=== PATIENT | female | born 1965 | race Caucasian/White ===

== ENCOUNTER 2017-12-27 15:55 | Emergency (ER) | payer MEDICAID ==
[~2017-12-27] VITALS: Ht 157.5 cm; Wt 48.4 kg
[~2017-12-27 15:55] MED LIST: COROTSUS EACH EAR; CYCL-1 PO; HYDR-569 PO; IBUP-1985 PO; NAPR500T6 PO; NO HOME MEDS
[2017-12-27] MEDS ORDERED: dexamethasone sod phosphate 10mg/ml inj IM STA (18:22)
[2017-12-27] MEDS ORDERED: IBUP-1986 PO (18:25)
[2017-12-27] MEDS ORDERED: PRED50TA PO (18:25)
[2017-12-27] MEDS ORDERED: PRAM177L19 TOP (18:25)
[2017-12-27] MEDS ORDERED: ketorolac tromethamine 15mg/ml inj. IM ONE (18:25)
[2017-12-27 18:46] VITALS: BP 138/67
== END 2017-12-27 18:47 | disposition home or self-care (01) ==
LOC: ER 15:56
DX: L23.9 Allergic contact dermatitis, unspecified cause (principal); J44.9 Chronic obstructive pulmonary disease, unspecified; G89.29 Other chronic pain; F12.10 Cannabis abuse, uncomplicated; F17.200 Nicotine dependence, unspecified, uncomplicated; Z88.0 Allergy status to penicillin; Z79.899 Other long term (current) drug therapy
CPT/HCPCS: 96372; 99284; J1100; J1885

== ENCOUNTER 2018-01-11 13:52 | Emergency (ER) | payer MEDICAID ==
[~2018-01-11] VITALS: Ht 157.5 cm; Wt 48.6 kg
[~2018-01-11 13:52] MED LIST changes: +IBUP-1986 PO; +PRAM177L19 TOP; +PRED50TA PO
[2018-01-11 14:34] VITALS: BP 100/68
[2018-01-11] MEDS ORDERED: ipratropium/albuterol 3ml nebule NEB ONE (15:15)
[2018-01-11] MEDS ORDERED: ketorolac tromethamine 15mg/ml inj. IM ONE (15:55)
[2018-01-11] MEDS ORDERED: benzonatate 100mg capsule PO ONE (15:55)
[2018-01-11] MEDS ORDERED: ALBU18HF2 INH (16:02)
[2018-01-11] MEDS ORDERED: AZIT-55 PO (16:02)
[2018-01-11] MEDS ORDERED: BENZ-16 PO (16:02)
[2018-01-11] MEDS ORDERED: GUAI1TBM19 PO (16:02)
== END 2018-01-11 16:52 | disposition home or self-care (01) ==
LOC: ER 13:53
DX: J18.9 Pneumonia, unspecified organism (principal); F17.200 Nicotine dependence, unspecified, uncomplicated; F12.10 Cannabis abuse, uncomplicated; J44.9 Chronic obstructive pulmonary disease, unspecified; G89.29 Other chronic pain; Z88.0 Allergy status to penicillin; Z79.899 Other long term (current) drug therapy
CPT/HCPCS: 36415; 71046; 84484; 93005; 94640; 94760; 96372; 99285; J1885

== ENCOUNTER 2018-01-31 16:26 | Emergency (ER) | payer MEDICAID ==
[~2018-01-31] VITALS: Ht 157.5 cm; Wt 49.1 kg
[~2018-01-31 16:26] MED LIST changes: +ALBU18HF2 INH; +AZIT-55 PO; +BENZ-16 PO; +GUAI1TBM19 PO
[2018-01-31] MEDS ORDERED: gabapentin 300mg capsule PO ONE (16:45)
[2018-01-31] MEDS ORDERED: ketorolac trometh inj. 60 MG/2 ML VIAL IM ONE (16:45)
[2018-01-31] MEDS ORDERED: dexamethasone sod phosphate 10mg/ml inj IM STA (16:56)
[2018-01-31 17:25] VITALS: BP 128/72
[2018-02-01] MEDS ORDERED: GABA-530 PO (15:52)
== END 2018-01-31 17:26 | disposition home or self-care (01) ==
LOC: ER 16:26
DX: G43.909 Migraine, unspecified, not intractable, without status migrainosus (principal); M54.2 Cervicalgia; G89.29 Other chronic pain; J44.9 Chronic obstructive pulmonary disease, unspecified; F12.10 Cannabis abuse, uncomplicated; Z88.0 Allergy status to penicillin; Z79.899 Other long term (current) drug therapy
CPT/HCPCS: 96372; 99284; J1100; J1885

== ENCOUNTER 2018-07-04 01:14 | Emergency (ER) | payer MEDICAID ==
[~2018-07-04] VITALS: Ht 157.5 cm; Wt 46.2 kg
[~2018-07-04 01:14] MED LIST changes: -AZIT-55 PO; -BENZ-16 PO; +GABA-530 PO; +HYDR-4383 PO; -HYDR-569 PO
[2018-07-04] MEDS ORDERED: ketorolac trometh inj. 60 MG/2 ML VIAL IM ONE (01:50)
[2018-07-04] MEDS ORDERED: HYDROcodone/acetaminophen 5mg/325mg tablet PO ONE (01:50)
[2018-07-04] MEDS ORDERED: CYCL-1 PO (02:27)
[2018-07-04] MEDS ORDERED: HYDR-3965 PO (02:27)
[2018-07-04 02:47] VITALS: BP 99/64
== END 2018-07-04 02:50 | disposition home or self-care (01) ==
LOC: ER 01:14
DX: M25.551 Pain in right hip (principal); K62.3 Rectal prolapse; J44.9 Chronic obstructive pulmonary disease, unspecified; G89.29 Other chronic pain; F12.90 Cannabis use, unspecified, uncomplicated; Z88.0 Allergy status to penicillin; Z79.899 Other long term (current) drug therapy; Y04.0XXA Assault by unarmed brawl or fight, initial encounter; Y93.89 Activity, other specified; Y92.89 Other specified places as the place of occurrence of the external cause; Y99.9 Unspecified external cause status
CPT/HCPCS: 96372; 99284; J1885

== ENCOUNTER 2018-10-14 17:35 | Emergency (ER) | payer MEDICAID ==
[~2018-10-14] VITALS: Ht 157.5 cm; Wt 49.1 kg
--- NOTE | 2018-10-14 20:26 | NUR ---
Patient became frustrated and left prior to being seen.
== END 2018-10-14 20:27 | disposition left against medical advice (07) ==
LOC: ER 17:35
DX: R05 Cough (principal); Z53.21 Procedure and treatment not carried out due to patient leaving prior to being seen by health care provider
CPT/HCPCS: 71045

== ENCOUNTER 2018-11-03 15:42 | Emergency (ER) | payer MEDICAID ==
[~2018-11-03] VITALS: Ht 157.5 cm; Wt 100.0 kg
[2018-11-03] MEDS ORDERED: ipratropium/albuterol 3ml nebule NEB ONE (17:40)
[2018-11-03] MEDS ORDERED: predniSONE 20 mg tablet PO ONE (17:40)
[2018-11-03] MEDS ORDERED: ALBU6.7H INH (17:58)
[2018-11-03] MEDS ORDERED: LEVO500T89 PO (17:58)
[2018-11-03] MEDS ORDERED: PRED20TA PO (17:58)
[2018-11-03] MEDS ORDERED: GUAI120015 PO (17:58)
[2018-11-03] MEDS ORDERED: CefTRIAXone 1000mg IM Kit (w/lidocaine diluent) IM ONE (18:00)
[2018-11-03] MEDS ORDERED: ketorolac trometh inj. 60 MG/2 ML VIAL IM ONE (18:30)
[2018-11-03 18:52] VITALS: BP 103/47
== END 2018-11-03 18:54 | disposition home or self-care (01) ==
LOC: ER 15:43
DX: J18.1 Lobar pneumonia, unspecified organism (principal); J44.1 Chronic obstructive pulmonary disease with (acute) exacerbation; G89.29 Other chronic pain; F15.10 Other stimulant abuse, uncomplicated; F12.90 Cannabis use, unspecified, uncomplicated; Z88.0 Allergy status to penicillin; Z79.899 Other long term (current) drug therapy; Z79.2 Long term (current) use of antibiotics
CPT/HCPCS: 71046; 93005; 94640; 94760; 96372; 99284; J0696; J1885; J7512

== ENCOUNTER 2018-11-05 19:18 | Emergency (ER) | payer MEDICAID ==
[~2018-11-05 19:18] MED LIST changes: +ALBU6.7H INH; +GUAI120015 PO; +LEVO500T89 PO; +PRED20TA PO
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
== END 2018-11-05 19:26 | disposition left against medical advice (07) ==
LOC: ER 19:18
DX: F41.0 Panic disorder [episodic paroxysmal anxiety] (principal); Z53.21 Procedure and treatment not carried out due to patient leaving prior to being seen by health care provider

== ENCOUNTER 2018-11-05 19:32 | Emergency (ER) | payer MEDICAID ==
[~2018-11-05] VITALS: Ht 157.5 cm; Wt 49.0 kg
--- NOTE | 2018-11-05 21:21 | NUR ---
Pt up to d/c and she said she cannot be d/c she is not wanting to leave the premises. Securtiy contact.
[2018-11-05 21:22] VITALS: BP 146/81
== END 2018-11-05 21:23 | disposition home or self-care (01) ==
LOC: ER 19:32
DX: F41.9 Anxiety disorder, unspecified (principal); F32.9 Major depressive disorder, single episode, unspecified; F12.90 Cannabis use, unspecified, uncomplicated; F15.90 Other stimulant use, unspecified, uncomplicated; J44.9 Chronic obstructive pulmonary disease, unspecified; G89.29 Other chronic pain; F17.200 Nicotine dependence, unspecified, uncomplicated; Z76.5 Malingerer [conscious simulation]; Z88.0 Allergy status to penicillin; Z79.899 Other long term (current) drug therapy
CPT/HCPCS: 99284

== ENCOUNTER 2019-06-07 19:16 | Emergency (ER) | payer MEDICAID ==
[~2019-06-07] VITALS: Ht 157.5 cm; Wt 54.0 kg
[~2019-06-07 19:16] MED LIST changes: -ALBU6.7H INH; +ALBU6.7H9 INH; -LEVO500T89 PO; -PRED20TA PO
[2019-06-07 19:22] VITALS: BP 107/71
--- NOTE | 2019-06-07 20:18 | NUR ---
Sharmila bianchi in EDM - 06/07/19 at 2034 by CHRISTIANO Pt ran out the side door of [facility] yelling "I cant find my dog, I cant find my dog". Unable to persuade pt not to leave. informed.
--- NOTE | 2019-06-07 20:23 | NUR ---
Pt making random statements. Pt unable to verbalize complete thoughts.
--- NOTE | 2019-06-07 20:30 | NUR ---
Pt ran out the side door of [facility] yelling "I cant find my dog, I cant find my dog". Unable to persuade pt not to leave. informed.
== END 2019-06-07 20:36 | disposition left against medical advice (07) ==
LOC: ER 19:17
DX: S61.401A Unspecified open wound of right hand, initial encounter (principal); J44.9 Chronic obstructive pulmonary disease, unspecified; G89.29 Other chronic pain; M54.9 Dorsalgia, unspecified; F41.9 Anxiety disorder, unspecified; F32.9 Major depressive disorder, single episode, unspecified; F12.90 Cannabis use, unspecified, uncomplicated; F15.90 Other stimulant use, unspecified, uncomplicated; Z79.899 Other long term (current) drug therapy; Z87.891 Personal history of nicotine dependence; X58.XXXA Exposure to other specified factors, initial encounter; Y93.89 Activity, other specified; Y92.89 Other specified places as the place of occurrence of the external cause; Y99.8 Other external cause status
CPT/HCPCS: 99284

== ENCOUNTER 2019-06-29 19:12 | Emergency (ER) | payer MEDICAID ==
[~2019-06-29] VITALS: Ht 154.9 cm; Wt 49.0 kg
[2019-06-29 19:13] VITALS: BP 121/79
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
[2019-06-29] MEDS ORDERED: IBUP-1984 PO (20:46)
== END 2019-06-29 21:26 | disposition home or self-care (01) ==
LOC: ER 19:13
DX: R07.81 Pleurodynia (principal); R07.89 Other chest pain; J44.9 Chronic obstructive pulmonary disease, unspecified; F41.9 Anxiety disorder, unspecified; F32.9 Major depressive disorder, single episode, unspecified; G89.29 Other chronic pain; F12.90 Cannabis use, unspecified, uncomplicated; F15.90 Other stimulant use, unspecified, uncomplicated; Z88.0 Allergy status to penicillin; Z79.899 Other long term (current) drug therapy; Z79.1 Long term (current) use of non-steroidal anti-inflammatories (NSAID)
CPT/HCPCS: 71111; 99283

== ENCOUNTER 2019-07-17 09:46 | Inpatient (IN) | payer MEDICAID ==
[~2019-07-17] VITALS: Ht 157.5 cm; Wt 48.0 kg
[~2019-07-17 09:46] MED LIST changes: +IBUP-1984 PO
[2019-07-17] MEDS ORDERED: acetaminophen 325mg tablet PO ONE ×2 (10:20→10:55)
--- NOTE | 2019-07-17 10:24 | NUR ---
temperature: 99.9. does not fall under ed protocol.
[2019-07-17 10:25] LABS: BASOPHILS # (AUTO) 0.1 X10'3 (0-0.2); BASOPHILS % (AUTO) 0.4 % (0-1); EOSINOPHILS % (AUTO) 0 % (0-6); HEMATOCRIT 44.8 % (35.0-45.0); HEMOGLOBIN 15.2 g/dl (12.0-16.0); LYMPHOCYTES # (AUTO) 1.3 X10'3 (1.1-4.8); LYMPHOCYTES % (AUTO) 6.9 % (21-51); MEAN CORPUSCULAR HEMOGLOBIN 31.5 PG (27.0-31.0); MEAN CORPUSCULAR HGB CONC 33.9 g/dL (33.0-36.5); MEAN CORPUSCULAR VOLUME 92.9 FL (78-98); MEAN PLATELET VOLUME 7.7 FL (7.4-10.4); MONOCYTES # (AUTO) 1.2 X10'3 (0-0.9); MONOCYTES % (AUTO) 5.9 % (2-12); NEUTROPHILS % (AUTO) 86.8 % (42-75); PLATELET COUNT 292 X10'3 (140-440); RED BLOOD COUNT 4.82 X10'6 (4.20-5.60); WHITE BLOOD COUNT 19.6 X10'3 (4.5-11.0)
[2019-07-17 10:40] LABS: PARTIAL THROMBOPLASTIN TIME 31 SECONDS (22-32)
[2019-07-17 10:43] LABS: ALANINE AMINOTRANSFERASE 21 U/L (12-78); ALBUMIN 3.3 G/DL (3.4-5.0); ALBUMIN/GLOBULIN RATIO 0.7 (1.1-1.5); ALKALINE PHOSPHATASE 102 IU/L (46-116); ANION GAP 12 (8-16); ASPARTATE AMINO TRANSFERASE 23 U/L (10-37); BILIRUBIN,TOTAL 0.7 MG/DL (0.1-1.0); BLOOD UREA NITROGEN 9 MG/DL (7-18); BUN/CREATININE RATIO 13.2 (6.6-38.0); CALCIUM 8.8 MG/DL (8.5-10.1); CHLORIDE 95 MMOL/L (99-107); CREATININE 0.68 MG/DL (0.40-0.90); GLUCOSE 135 MG/DL (70-104); POTASSIUM 3.2 MMOL/L (3.5-5.1); SODIUM 130 MMOL/L (135-145); TOTAL CARBON DIOXIDE 22.7 MMOL/L (24-32); TOTAL PROTEIN 8.3 G/DL (6.4-8.2); eGFR 90 ML/MIN
[2019-07-17] MEDS ORDERED: normal saline 1000ml 1,000 ML IV ONE (10:55)
[2019-07-17] MEDS ORDERED: CefTRIAXone/D5W-Rocephin 1gm 50 ML IV ONE (10:55)
[2019-07-17] MEDS ORDERED: normal saline 1000ML IV soln IVB ONE (10:55)
[2019-07-17] MEDS ORDERED: potassium Cl 20 mEq SR tablet PO ONE (11:10)
[2019-07-17 11:47] LABS: CLARITY,URINE CLEAR (Clear); COLOR,URINE YELLOW (Yellow); GLUCOSE, URINE NEGATIVE (Neg); KETONES,URINE NEGATIVE (Neg); LEUKOCYTE ESTERASE ,URINE NEGATIVE (Neg); NITRITES, URINE NEGATIVE (Neg); OCCULT BLOOD,URINE MODERATE (Neg); PROTEIN,URINE 30 mg/dl (Neg); UROBILINOGEN,URINE 0.2 E.U/dL (0.2-1.0)
[2019-07-17 11:48] LABS: UA COLLECTION TYPE CLN CATCH MIDSTREAM
[2019-07-17 11:55] LABS: BACTERIA,URINE FEW /HPF (Neg); COARSE GRANULAR CAST 0-3 /LPF (NEGATIVE); MUCUS STRANDS MANY /LPF (Neg); SQUAMOUS EPITHELIAL CELL,UR FEW /LPF (FEW); TRANSITIONAL EPI CELLS,URINE FEW /HPF; WBC,URINE 0-4 /HPF (0-4)
[2019-07-17] MEDS: normal saline 1000ml 1,000 ML IV SCH ×2 (12:03→23:59)
[2019-07-17] MEDS ORDERED: mag hydrox/Alum hydrox/simeth 30ml oral suspension PO PRN (12:05)
[2019-07-17] MEDS ORDERED: magnesium hydroxide 30ml (MOM) UD suspension PO PRN (12:05)
[2019-07-17] MEDS ORDERED: ipratropium/albuterol 3ml nebule NEB PRN (12:05)
[2019-07-17] MEDS ORDERED: azithromycin 250mg tablet PO ONE (12:05)
[2019-07-17] MEDS ORDERED: ondansetron/PF 4mg/2ml inj IV PRN (12:05)
[2019-07-17] MEDS ORDERED: acetaminophen 325mg tablet PO PRN (12:05)
[2019-07-17] MEDS ORDERED: NO HOME MEDS (12:54)
--- NOTE | 2019-07-17 13:00 | NUR ---
Patient in room ED 14. I have received report from Dali MITCHELL and had the opportunity to ask questions and assume patient care.
[2019-07-17] MEDS ORDERED: iohexol 300mg/ml 100ml inj. ONE (13:13)
[2019-07-17 13:35] VITALS: BP 128/83
--- NOTE | 2019-07-17 14:01 | NUR ---
Pt disconnected from IVF for transport to CT by CT staff. Pt off unit at this time. Addendum: 07/17/19 at 1427 by Itzel Limon RN 1420 Pt returned to unit in stable condition. Standing at bedside, going through her belongings. Cell phone removed from her bag and with her in her bed. internal sales applied. IVF restarted.
--- NOTE | 2019-07-17 14:14 | NUR ---
Entered pt's 1335 VS per primary RN request.
[2019-07-17] MEDS: ipratropium/albuterol 3ml nebule NEB SCH ×3 (14:37→23:29)
[2019-07-17 15:00] VITALS: BP 129/72
[2019-07-17] MEDS: HYDROcodone/acetaminophen 5mg/325mg tablet PO PRN ×2 (16:19→22:26)
[2019-07-17] MEDS: acetaminophen 325mg tablet PO PRN ×2 (16:20→22:26)
[2019-07-17] MEDS ORDERED: dextrose 50%-water 50ml dispensing syringe IV PRN (17:30)
[2019-07-17] MEDS ORDERED: thiamine 100mg/ml 2ml inj. IV ONE (17:30)
[2019-07-17] MEDS: folic acid 1mg tablet PO SCH (17:42)
[2019-07-17] MEDS: thiamine 100mg tablet PO SCH (17:42)
[2019-07-17] MEDS: multivitamins, therapeutics tablet PO SCH (17:42)
[2019-07-17 18:00] VITALS: BP 107/69
--- NOTE | 2019-07-17 18:51 | NUR ---
Patient in room PCU 3009. I have received report from Jocelyn MITCHELL and had the opportunity to ask questions and assume patient care.
--- NOTE | 2019-07-17 19:14 | NUR ---
Problems reprioritized. Patient report given, questions answered & plan of care reviewed with Christian RN.
[2019-07-17] MEDS: heparin, porcine 5000 units/ml vial SQ SCH (20:00)
[2019-07-17 22:00] VITALS: BP 134/105
[2019-07-17] MEDS: LORazepam 2 mg/ml vial IV PRN (22:37)
[2019-07-18 02:00] VITALS: BP 126/74
[2019-07-18] MEDS: ipratropium/albuterol 3ml nebule NEB SCH ×6 (03:13→23:18)
[2019-07-18] MEDS: LORazepam 2 mg/ml vial IV PRN ×4 (04:48→21:20)
[2019-07-18] MEDS: HYDROcodone/acetaminophen 5mg/325mg tablet PO PRN ×3 (04:48→19:54)
[2019-07-18 05:27] LABS: BASOPHILS # (AUTO) 0.1 X10'3 (0-0.2); BASOPHILS % (AUTO) 0.4 % (0-1); EOSINOPHILS % (AUTO) 0 % (0-6); HEMATOCRIT 40.5 % (35.0-45.0); HEMOGLOBIN 13.5 g/dl (12.0-16.0); LYMPHOCYTES # (AUTO) 1.4 X10'3 (1.1-4.8); LYMPHOCYTES % (AUTO) 8.3 % (21-51); MEAN CORPUSCULAR HEMOGLOBIN 31.8 PG (27.0-31.0); MEAN CORPUSCULAR HGB CONC 33.3 g/dL (33.0-36.5); MEAN CORPUSCULAR VOLUME 95.7 FL (78-98); MEAN PLATELET VOLUME 8.1 FL (7.4-10.4); MONOCYTES % (AUTO) 5.8 % (2-12); NEUTROPHILS # (AUTO) 14.3 X10'3 (1.8-7.7); NEUTROPHILS % (AUTO) 85.5 % (42-75); PLATELET COUNT 221 X10'3 (140-440); RED BLOOD COUNT 4.23 X10'6 (4.20-5.60); RED CELL DISTRIBUTION WIDTH 14.2 % (11.5-14.5); WHITE BLOOD COUNT 16.7 X10'3 (4.5-11.0)
[2019-07-18 05:29] LABS: ALBUMIN 2.7 G/DL (3.4-5.0); ANION GAP 6 (8-16); BLOOD UREA NITROGEN 10 MG/DL (7-18); BUN/CREATININE RATIO 15.4 (6.6-38.0); CALCIUM 8.7 MG/DL (8.5-10.1); CHLORIDE 101 MMOL/L (99-107); CREATININE 0.65 MG/DL (0.40-0.90); GLUCOSE 109 MG/DL (70-104); POTASSIUM 4.4 MMOL/L (3.5-5.1); SODIUM 133 MMOL/L (135-145); TOTAL CARBON DIOXIDE 26.1 MMOL/L (24-32); eGFR > 90 ML/MIN
--- NOTE | 2019-07-18 06:15 | NUR ---
Problems reprioritized. Patient report given, questions answered & plan of care reviewed with kat sterling .
[2019-07-18 06:30] VITALS: BP 125/84
--- NOTE | 2019-07-18 06:33 | NUR ---
Patient in room PCU 3009. I have received report from Christian MITCHELL and had the opportunity to ask questions and assume patient care.
[2019-07-18] MEDS: azithromycin 250mg tablet PO SCH (07:41)
[2019-07-18] MEDS: folic acid 1mg tablet PO SCH (07:41)
[2019-07-18] MEDS: multivitamins, therapeutics tablet PO SCH (07:41)
[2019-07-18] MEDS: thiamine 100mg tablet PO SCH (07:41)
[2019-07-18] MEDS: CefTRIAXone 2gm/D5W 50ml 50 ML IV SCH (07:41)
[2019-07-18] MEDS: heparin, porcine 5000 units/ml vial SQ SCH ×2 (07:42→19:40)
[2019-07-18] MEDS: normal saline 1000ml 1,000 ML IV SCH ×2 (07:42→18:03)
[2019-07-18] MEDS ORDERED: folic acid inj. 2 MG, thiamine inj. 100 MG, MVI, adult No.4 with vit. K 10 ML in dextro... IV SCH ×4 (08:00)
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
--- NOTE | 2019-07-18 10:27 | NUR ---
Paged Dr Cabrera regarding sitter order PAGER ID: [phone] MESSAGE: Ashly oconnell [phone]. Martha Alexander 3009. Can we have order for sitter please. Patient has periods of being combative and impulsive. Thank you
[2019-07-18 11:00] VITALS: BP 118/66
[2019-07-18] MEDS: acetaminophen 325mg tablet PO PRN (11:22)
[2019-07-18] MEDS ORDERED: linezolid 600mg/300ml PREMIX 300 ML IV ONE (14:35)
--- NOTE | 2019-07-18 14:37 | NUR ---
Paged Dr Cabrera PAGER ID: [phone] MESSAGE: Ashly oconnell [phone]. RE Martha Manzo [id number]. Can I have PRN order for Haldol and sitter order please? Thank you
[2019-07-18] MEDS ORDERED: haloperidol lactate 5mg/ml inj IM PRN (14:40)
[2019-07-18 15:00] VITALS: BP 111/77
[2019-07-18 18:00] VITALS: BP 126/83
--- NOTE | 2019-07-18 18:18 | NUR ---
Patient in room PCU 3025. I have received report from STEPHEN Limon and had the opportunity to ask questions and assume patient care.
--- NOTE | 2019-07-18 18:23 | NUR ---
Problems reprioritized. Patient report given, questions answered & plan of care reviewed with Taylor MITCHELL.
[2019-07-18 18:55] LABS: URINE AMPHETAMINE SCREEN NEGATIVE (Neg); URINE BARBITUATE SCREEN NEGATIVE (Neg); URINE BENZODIAZEPINES SCREEN NEGATIVE (Neg); URINE CANNABINOID SCREEN POSITIVE (Neg); URINE COCAINE SCREEN NEGATIVE (Neg); URINE METHADONE SCREEN NEGATIVE (Neg); URINE OPIATE SCREEN POSITIVE (Neg); URINE PHENCYCLIDINE SCREEN NEGATIVE (Neg)
[2019-07-18] MEDS: lactobacillus rhamnosus 10,000 MMU CELLS/CAPSULE PO SCH (19:40)
[2019-07-18] MEDS ORDERED: linezolid 600mg/300ml PREMIX 300 ML IV SCH (20:00)
[2019-07-18 22:00] VITALS: BP 118/74
--- NOTE | 2019-07-19 00:21 | NUR ---
Patient often takes off tele monitor and has to be reoriented to have them put back on. When asked why, patient states, "You're doing this so I can't go anywhere." Patient was told the reason for it is to monitor for heart problems, so that we can help with any that arise, and is not used to keep her here. Patient does not reply and goes back to sleep.
[2019-07-19 02:00] VITALS: BP 101/62
[2019-07-19] MEDS: ipratropium/albuterol 3ml nebule NEB SCH ×6 (03:19→23:00)
[2019-07-19] MEDS: normal saline 1000ml 1,000 ML IV SCH ×2 (03:57→14:03)
[2019-07-19] MEDS: HYDROcodone/acetaminophen 5mg/325mg tablet PO PRN ×2 (04:48→20:28)
[2019-07-19] MEDS: LORazepam 2 mg/ml vial IV PRN ×5 (04:57→18:01)
--- NOTE | 2019-07-19 05:01 | NUR ---
Two PRN ativan per order given throughout this shift. Patient moves restlessly packing her stuff and tries to rip out IV stating, "I've got to get out of here and go home." Sitter at bedside, will continue to monitor. Patient pulled off the tele monitor 5 times through the NOC shift.
[2019-07-19 05:25] LABS: BASOPHILS # (AUTO) 0.1 X10'3 (0-0.2); BASOPHILS % (AUTO) 0.5 % (0-1); EOSINOPHILS % (AUTO) 0.3 % (0-6); HEMATOCRIT 35.8 % (35.0-45.0); LYMPHOCYTES # (AUTO) 1.4 X10'3 (1.1-4.8); LYMPHOCYTES % (AUTO) 10.8 % (21-51); MEAN CORPUSCULAR HEMOGLOBIN 31.7 PG (27.0-31.0); MEAN CORPUSCULAR HGB CONC 33.6 g/dL (33.0-36.5); MEAN CORPUSCULAR VOLUME 94.2 FL (78-98); MEAN PLATELET VOLUME 8.4 FL (7.4-10.4); MONOCYTES # (AUTO) 0.9 X10'3 (0-0.9); MONOCYTES % (AUTO) 6.6 % (2-12); NEUTROPHILS # (AUTO) 10.6 X10'3 (1.8-7.7); NEUTROPHILS % (AUTO) 81.8 % (42-75); PLATELET COUNT 217 X10'3 (140-440); RED CELL DISTRIBUTION WIDTH 13.6 % (11.5-14.5)
[2019-07-19 05:35] LABS: ALBUMIN 2.4 G/DL (3.4-5.0); ANION GAP 6 (8-16); BLOOD UREA NITROGEN 10 MG/DL (7-18); BUN/CREATININE RATIO 15.2 (6.6-38.0); CALCIUM 8.9 MG/DL (8.5-10.1); CHLORIDE 102 MMOL/L (99-107); CREATININE 0.66 MG/DL (0.40-0.90); GLUCOSE 104 MG/DL (70-104); POTASSIUM 3.6 MMOL/L (3.5-5.1); SODIUM 136 MMOL/L (135-145); TOTAL CARBON DIOXIDE 27.9 MMOL/L (24-32); eGFR > 90 ML/MIN
--- NOTE | 2019-07-19 06:25 | NUR ---
Problems reprioritized. Patient report given, questions answered & plan of care reviewed with STEPHEN Limon.
[2019-07-19 06:30] VITALS: BP 107/61
--- NOTE | 2019-07-19 06:30 | NUR ---
Patient in room PCU 6806U. I have received report from Taylor MITCHELL and had the opportunity to ask questions and assume patient care.
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
[2019-07-19] MEDS: folic acid 1mg tablet PO SCH (08:48)
[2019-07-19] MEDS: multivitamins, therapeutics tablet PO SCH (08:48)
[2019-07-19] MEDS: thiamine 100mg tablet PO SCH (08:48)
[2019-07-19] MEDS: lactobacillus rhamnosus 10,000 MMU CELLS/CAPSULE PO SCH ×2 (08:48→20:28)
[2019-07-19] MEDS: azithromycin 250mg tablet PO SCH (08:48)
[2019-07-19] MEDS: CefTRIAXone 2gm/D5W 50ml 50 ML IV SCH (08:50)
[2019-07-19] MEDS: heparin, porcine 5000 units/ml vial SQ SCH ×2 (08:51→20:29)
[2019-07-19 11:00] VITALS: BP 106/75
[2019-07-19] MEDS: linezolid 600mg tablet PO SCH ×2 (12:17→20:28)
--- NOTE | 2019-07-19 13:41 | NUR ---
Spoke to Dr Tee regarding head CT. Paged Dr Cabrera to let him know that report resulted. PAGER ID: [phone] MESSAGE: Ashly oconnell [phone]. Martha Alexander [id number]. Head CT report resulted. Spoke with Dr Tee.
[2019-07-19 15:00] VITALS: BP 123/77
--- NOTE | 2019-07-19 15:41 | NUR ---
zyvox education: patient is receiving zyvox, attempted bedside visit, observed patient with nader, patient currently documented as A/O x3 with metabolic encephalopathy, admitted on EtOH withdrawal protocol, not appropriate for education currently, will monitor and provide written and verbal education for low tyramine diet r/t zyvox prior to discharge. Addendum: 07/19/19 at [address] Amended: Links added.
[2019-07-19 18:00] VITALS: BP 111/68
--- NOTE | 2019-07-19 18:11 | NUR ---
Problems reprioritized. Patient report given, questions answered & plan of care reviewed with Taylor MITCHELL.
--- NOTE | 2019-07-19 18:27 | NUR ---
New hire documentation: I have reviewed and agree with all interventions, assessments performed and documented by Carlita MITCHELL.
[2019-07-19] MEDS: LORazepam 1 MG tablet PO PRN (20:29)
[2019-07-19 22:00] VITALS: BP 106/73
[2019-07-20] MEDS: normal saline 1000ml 1,000 ML IV SCH ×2 (00:03→04:55)
[2019-07-20 02:00] VITALS: BP 129/71
[2019-07-20] MEDS: HYDROcodone/acetaminophen 5mg/325mg tablet PO PRN (03:19)
[2019-07-20] MEDS: LORazepam 2 mg/ml vial IV PRN (03:20)
--- NOTE | 2019-07-20 03:52 | NUR ---
Patient in room PCU 3025. I have received report from STEPHEN Limon and had the opportunity to ask questions and assume patient care.
--- NOTE | 2019-07-20 03:53 | NUR ---
MD called and notified for positive blood cultures.
[2019-07-20] MEDS: ipratropium/albuterol 3ml nebule NEB SCH (04:10)
[2019-07-20 05:02] LABS: BASOPHILS # (AUTO) 0.1 X10'3 (0-0.2); BASOPHILS % (AUTO) 1.4 % (0-1); EOSINOPHILS # (AUTO) 0.1 X10'3 (0-0.9); EOSINOPHILS % (AUTO) 1.3 % (0-6); HEMATOCRIT 35.5 % (35.0-45.0); HEMOGLOBIN 12.1 g/dl (12.0-16.0); LYMPHOCYTES # (AUTO) 1.4 X10'3 (1.1-4.8); MEAN CORPUSCULAR HEMOGLOBIN 31.7 PG (27.0-31.0); MEAN CORPUSCULAR HGB CONC 33.9 g/dL (33.0-36.5); MEAN CORPUSCULAR VOLUME 93.5 FL (78-98); MEAN PLATELET VOLUME 8.5 FL (7.4-10.4); MONOCYTES # (AUTO) 0.6 X10'3 (0-0.9); MONOCYTES % (AUTO) 7.4 % (2-12); NEUTROPHILS # (AUTO) 6.2 X10'3 (1.8-7.7); NEUTROPHILS % (AUTO) 72.9 % (42-75); PLATELET COUNT 231 X10'3 (140-440); RED CELL DISTRIBUTION WIDTH 13.6 % (11.5-14.5); WHITE BLOOD COUNT 8.5 X10'3 (4.5-11.0)
[2019-07-20 05:23] LABS: ALBUMIN 2.3 G/DL (3.4-5.0); ANION GAP 9 (8-16); BLOOD UREA NITROGEN 9 MG/DL (7-18); BUN/CREATININE RATIO 13.8 (6.6-38.0); CALCIUM 8.9 MG/DL (8.5-10.1); CHLORIDE 101 MMOL/L (99-107); CREATININE 0.65 MG/DL (0.40-0.90); GLUCOSE 87 MG/DL (70-104); POTASSIUM 3.9 MMOL/L (3.5-5.1); SODIUM 136 MMOL/L (135-145); TOTAL CARBON DIOXIDE 25.6 MMOL/L (24-32); eGFR > 90 ML/MIN
[2019-07-20] MEDS: LORazepam 1 MG tablet PO PRN (05:35)
[2019-07-20 06:00] VITALS: BP 117/80
--- NOTE | 2019-07-20 06:25 | NUR ---
Patient in room PCU 3863F. I have received report from Taylor MITCHELL and had the opportunity to ask questions and assume patient care.
--- NOTE | 2019-07-20 06:47 | NUR ---
Problems reprioritized. Patient report given, questions answered & plan of care reviewed with STEPHEN Limon.
--- NOTE | 2019-07-20 07:15 | NUR ---
[facility] hospitalist, Dr. Cabrera. Patient is up, walking around bed, attempting to gather belongings. She states that she wants to leave, "I need to go smoke, and buy a phone size painter". Reinforced the smoking policy and that patient should stay in the hospital. She is adamant about wanting to leave. [facility] hospitalist, Dr. Cabrera. PAGER ID: [phone] MESSAGE: Carlita kourtney [phone]. Martha Woodard [id number]. Pt is saying she is going to go AMA, she will sign the form. Thank you.
--- NOTE | 2019-07-20 07:30 | NUR ---
patient left AMA, unable to give flu vaccination prior to patient leaving.
--- NOTE | 2019-07-20 07:40 | NUR ---
Patient keep stating that she wanted to leave, needed to charge phone. Found a phone [employer] for her to use. Then stated that she wanted to go for a walk and smoke. Reminded patient of smoking policy and concern for her safety. Patient continues to state she wants to leave the hospital. Paged hospitalist, Dr. Cabrera, that patient wants to leave AMA. Brought patient AMA form and explained to her that she can leave against medical advice. Patient wanted to sign form. IV removed with cannula intact, tele monitor removed. Patient escorted with security out of hospital with all belongings.
--- NOTE | 2019-07-20 07:40 | NUR ---
New hire documentation: I have reviewed and agree with all interventions, assessments performed and documented by Carlita MITCHELL.
[2019-07-20] MEDS ORDERED: HYDR-4383 PO (20:41)
[2019-07-21] MEDS ORDERED: LORazepam 2 mg/ml vial IV PRN (17:30)
[2019-07-21] MEDS ORDERED: LORazepam 1 MG tablet PO PRN (17:30)
== END 2019-07-20 07:38 | disposition left against medical advice (07) | DRG 144 ==
LOC: ER 09:47 → ED HOLD 12:37 → PCU 3S 13:23
PROVIDERS: ADMIT Family Medicine; ATTEND Family Medicine
DX: S22.32XA Fracture of one rib, left side, initial encounter for closed fracture (principal); G92 Toxic encephalopathy; J18.9 Pneumonia, unspecified organism; E87.1 Hypo-osmolality and hyponatremia; F15.20 Other stimulant dependence, uncomplicated; J44.0 Chronic obstructive pulmonary disease with (acute) lower respiratory infection; E87.6 Hypokalemia; F10.20 Alcohol dependence, uncomplicated; F12.90 Cannabis use, unspecified, uncomplicated; F17.210 Nicotine dependence, cigarettes, uncomplicated; J44.1 Chronic obstructive pulmonary disease with (acute) exacerbation; J22 Unspecified acute lower respiratory infection; F32.9 Major depressive disorder, single episode, unspecified; F41.9 Anxiety disorder, unspecified; X58.XXXA Exposure to other specified factors, initial encounter; Z53.29 Procedure and treatment not carried out because of patient's decision for other reasons; Z59.0 Homelessness; Y93.89 Activity, other specified; Y92.89 Other specified places as the place of occurrence of the external cause; Y99.8 Other external cause status
CPT/HCPCS: 36415; 70450; 71045; 71260; 80048; 80053; 80305; 81001; 82948; 83605; 84145; 85025; 85610; 85730; 87040; 87077; 87081; 87186; 94640; 94760; 96365; 99285; G0378; J0696; J1644; J2020; J2060; J7030; Q9967

== ENCOUNTER 2019-07-20 15:43 | Emergency (ER) | payer MEDICAID ==
[~2019-07-20] VITALS: Ht 157.5 cm; Wt 47.0 kg
[~2019-07-20 15:43] MED LIST changes: -ALBU18HF2 INH; -ALBU6.7H9 INH; -COROTSUS EACH EAR; -CYCL-1 PO; -GABA-530 PO; -GUAI120015 PO; -GUAI1TBM19 PO; -HYDR-4383 PO; -IBUP-1984 PO; -IBUP-1985 PO; -IBUP-1986 PO; -NAPR500T6 PO; -PRAM177L19 TOP; -PRED50TA PO
--- NOTE | 2019-07-20 18:07 | NUR ---
pt was on 3rd floor but left ama because she didnt have her phone family caseworker but now that she has her family caseworker she want her room back and to cont her antibiotics
[2019-07-20] MEDS ORDERED: ipratropium/albuterol 3ml nebule NEB ONE (18:55)
[2019-07-20] MEDS ORDERED: normal saline 1000ML IV soln IVB ONE (19:05)
[2019-07-20 19:24] VITALS: BP 129/82
[2019-07-20] MEDS ORDERED: ketorolac trometh. 30mg/ml inj. IV ONE (20:40)
[2019-07-20] MEDS ORDERED: morphine 10mg/ml inj. IV ONE (20:40)
[2019-07-20] MEDS ORDERED: HYDR-4383 PO (20:41)
== END 2019-07-20 20:55 | disposition home or self-care (01) ==
LOC: ER 15:44
DX: R07.89 Other chest pain (principal); J44.9 Chronic obstructive pulmonary disease, unspecified; G89.29 Other chronic pain; F41.9 Anxiety disorder, unspecified; F32.9 Major depressive disorder, single episode, unspecified; F12.90 Cannabis use, unspecified, uncomplicated; F15.90 Other stimulant use, unspecified, uncomplicated; F10.99 Alcohol use, unspecified with unspecified alcohol-induced disorder; Z88.0 Allergy status to penicillin; Z79.899 Other long term (current) drug therapy; Y90.9 Presence of alcohol in blood, level not specified
CPT/HCPCS: 71045; 94640; 94760; 96374; 96375; 99284; J1885; J2270; J7030

== ENCOUNTER 2019-10-11 01:07 | Emergency (ER) | payer MEDICAID ==
[~2019-10-11] VITALS: Ht 157.5 cm; Wt 54.5 kg
[~2019-10-11 01:07] MED LIST changes: +HYDR-4383 PO
--- NOTE | 2019-10-11 01:45 | NUR ---
pt to ct
--- NOTE | 2019-10-11 01:52 | NUR ---
pt back from ct
[2019-10-11] MEDS ORDERED: ketorolac trometh inj. 60 MG/2 ML VIAL IM ONE (02:15)
[2019-10-11 02:42] VITALS: BP 144/90
== END 2019-10-11 02:35 | disposition home or self-care (01) ==
LOC: ER 01:08
DX: S00.83XA Contusion of other part of head, initial encounter (principal); S09.90XA Unspecified injury of head, initial encounter; J44.9 Chronic obstructive pulmonary disease, unspecified; F41.9 Anxiety disorder, unspecified; F32.9 Major depressive disorder, single episode, unspecified; G89.29 Other chronic pain; M54.9 Dorsalgia, unspecified; F17.200 Nicotine dependence, unspecified, uncomplicated; F12.90 Cannabis use, unspecified, uncomplicated; Z88.0 Allergy status to penicillin; Z79.899 Other long term (current) drug therapy; Y08.89XA Assault by other specified means, initial encounter; Y93.89 Activity, other specified; Y92.89 Other specified places as the place of occurrence of the external cause; Y99.8 Other external cause status; Y90.9 Presence of alcohol in blood, level not specified
CPT/HCPCS: 70450; 70486; 96372; 99284; J1885

== ENCOUNTER 2019-10-23 13:54 | Emergency (ER) | payer MEDICAID ==
--- NOTE | 2019-10-23 14:55 | NUR ---
SECOND CALL, NOT IN LOBBY
--- NOTE | 2019-10-23 15:09 | NUR ---
THIRD CALL NOT IN LOBBY
[2019-10-24] MEDS ORDERED: PRED20TA PO (19:26)
[2019-10-24] MEDS ORDERED: ALBU8HFA PO (19:26)
[2019-10-24] MEDS ORDERED: AZIT500T PO (19:26)
== END 2019-10-23 15:09 | disposition left against medical advice (07) ==
LOC: ER 13:55
DX: R05 Cough (principal); Z53.21 Procedure and treatment not carried out due to patient leaving prior to being seen by health care provider

== ENCOUNTER 2019-10-24 17:02 | Emergency (ER) | payer MEDICAID ==
[~2019-10-24] VITALS: Ht 157.5 cm; Wt 50.0 kg
[2019-10-24 17:07] VITALS: BP 124/73
[2019-10-24] MEDS ORDERED: predniSONE 20 mg tablet PO STA (18:26)
[2019-10-24] MEDS ORDERED: ipratropium/albuterol 3ml nebule NEB ONE (18:30)
[2019-10-24] MEDS ORDERED: ALBU8HFA PO (19:26)
[2019-10-24] MEDS ORDERED: PRED20TA PO (19:26)
[2019-10-24] MEDS ORDERED: AZIT500T PO (19:26)
[2019-10-24] MEDS ORDERED: azithromycin 250mg tablet PO ONE (19:35)
== END 2019-10-24 19:46 | disposition home or self-care (01) ==
LOC: ER 17:02
DX: J44.1 Chronic obstructive pulmonary disease with (acute) exacerbation (principal); J18.9 Pneumonia, unspecified organism; J06.9 Acute upper respiratory infection, unspecified; R19.7 Diarrhea, unspecified; G89.29 Other chronic pain; F41.9 Anxiety disorder, unspecified; F32.9 Major depressive disorder, single episode, unspecified; F17.210 Nicotine dependence, cigarettes, uncomplicated; F12.90 Cannabis use, unspecified, uncomplicated; F15.90 Other stimulant use, unspecified, uncomplicated; Z56.0 Unemployment, unspecified; Z88.0 Allergy status to penicillin; Z79.2 Long term (current) use of antibiotics; Z79.899 Other long term (current) drug therapy
CPT/HCPCS: 71045; 87502; 87503; 94640; 99284; J7512; 94760

== ENCOUNTER 2019-11-14 10:09 | Emergency (ER) | payer MEDICAID ==
[~2019-11-14] VITALS: Ht 160 cm; Wt 48.1 kg
[2019-11-14 10:09] VITALS: BP 136/85
[~2019-11-14 10:09] MED LIST changes: +ALBU8HFA PO; +PRED20TA PO
--- NOTE | 2019-11-14 11:17 | NUR ---
Pt provided cup of hot water for tea while in staff line of sight
[2019-11-14] MEDS ORDERED: GUAI600T45 PO (11:49)
[2019-11-14] MEDS ORDERED: GUAI118S13 PO (11:59)
== END 2019-11-14 12:11 | disposition home or self-care (01) ==
LOC: ER 10:09
DX: J06.9 Acute upper respiratory infection, unspecified (principal); R05 Cough; J44.9 Chronic obstructive pulmonary disease, unspecified; G89.29 Other chronic pain; F12.90 Cannabis use, unspecified, uncomplicated; F15.90 Other stimulant use, unspecified, uncomplicated; Z59.0 Homelessness; Z56.0 Unemployment, unspecified; Z88.0 Allergy status to penicillin; Z79.899 Other long term (current) drug therapy; Z87.01 Personal history of pneumonia (recurrent)
CPT/HCPCS: 99284

== ENCOUNTER 2019-12-31 11:08 | Emergency (ER) | payer MEDICAID ==
[~2019-12-31] VITALS: Ht 160 cm; Wt 48.0 kg
[~2019-12-31 11:08] MED LIST changes: -ALBU8HFA PO; -PRED20TA PO
[2019-12-31 11:10] VITALS: BP 111/74
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
--- NOTE | 2019-12-31 14:01 | NUR ---
[facility] states they have information on [facility] [place] and the pt can go there. called there and was informed they have room for a pt with a dog and she can come there to gate [address] at the [facility]. director Susanne approved the taxi ride of 32 mi to the [facility]. the taxi will take her and the dog for $3 more.
== END 2019-12-31 13:57 | disposition home or self-care (01) ==
LOC: ER 11:09
DX: S00.83XA Contusion of other part of head, initial encounter (principal); H57.89 Other specified disorders of eye and adnexa; J44.9 Chronic obstructive pulmonary disease, unspecified; G89.29 Other chronic pain; F41.9 Anxiety disorder, unspecified; F32.9 Major depressive disorder, single episode, unspecified; F12.90 Cannabis use, unspecified, uncomplicated; F15.90 Other stimulant use, unspecified, uncomplicated; Z59.0 Homelessness; Z56.0 Unemployment, unspecified; Z72.89 Other problems related to lifestyle; Z88.0 Allergy status to penicillin; Z79.899 Other long term (current) drug therapy; Y04.8XXA Assault by other bodily force, initial encounter; Y93.89 Activity, other specified; Y92.89 Other specified places as the place of occurrence of the external cause; Y99.8 Other external cause status
CPT/HCPCS: 70450; 70486; 99285

== ENCOUNTER 2020-02-23 18:18 | Emergency (ER) | payer MEDICAID ==
[2020-02-23 18:35] VITALS: BP 146/91
[2020-02-23] MEDS ORDERED: DOXY100C76 PO (19:27)
== END 2020-02-23 19:53 | disposition home or self-care (01) ==
LOC: ER 18:19
DX: J18.9 Pneumonia, unspecified organism (principal); J44.9 Chronic obstructive pulmonary disease, unspecified; G89.29 Other chronic pain; F41.9 Anxiety disorder, unspecified; F32.9 Major depressive disorder, single episode, unspecified; R42 Dizziness and giddiness; R19.7 Diarrhea, unspecified; R11.2 Nausea with vomiting, unspecified; F12.90 Cannabis use, unspecified, uncomplicated; F15.90 Other stimulant use, unspecified, uncomplicated; Z03.818 Encounter for observation for suspected exposure to other biological agents ruled out; Z59.0 Homelessness; Z56.0 Unemployment, unspecified; Z88.0 Allergy status to penicillin; Z79.899 Other long term (current) drug therapy
CPT/HCPCS: 36415; 71045; 99284; U0003

== ENCOUNTER 2020-03-05 15:44 | Emergency (ER) | payer MEDICAID ==
[2020-03-05 15:45] VITALS: BP 148/100
== END 2020-03-05 16:24 | disposition left against medical advice (07) ==
LOC: ER 15:45
DX: M79.672 Pain in left foot (principal); M79.671 Pain in right foot; J44.9 Chronic obstructive pulmonary disease, unspecified; G89.29 Other chronic pain; F41.9 Anxiety disorder, unspecified; F32.9 Major depressive disorder, single episode, unspecified; F12.90 Cannabis use, unspecified, uncomplicated; F15.90 Other stimulant use, unspecified, uncomplicated; Z59.0 Homelessness; Z56.0 Unemployment, unspecified; Z88.0 Allergy status to penicillin; Z79.899 Other long term (current) drug therapy
CPT/HCPCS: 99281

== ENCOUNTER 2020-03-27 09:52 | Emergency (ER) | payer MEDICAID ==
[2020-03-27 10:02] VITALS: BP 102/64
[2020-03-27] MEDS ORDERED: NEOM10DR45 RIGHT EAR (11:04)
[2020-03-27] MEDS ORDERED: LEVO500T2 PO (11:04)
[2020-03-27] MEDS ORDERED: ketorolac trometh inj. 60 MG/2 ML VIAL IM ONE (11:05)
[2020-03-27] MEDS ORDERED: CefTRIAXone 1000mg IM Kit (w/lidocaine diluent) IM ONE (11:05)
== END 2020-03-27 11:32 | disposition home or self-care (01) ==
LOC: ER 09:53
DX: H66.91 Otitis media, unspecified, right ear (principal); H60.91 Unspecified otitis externa, right ear; J44.9 Chronic obstructive pulmonary disease, unspecified; G89.29 Other chronic pain; F41.9 Anxiety disorder, unspecified; F32.9 Major depressive disorder, single episode, unspecified; F12.90 Cannabis use, unspecified, uncomplicated; F15.90 Other stimulant use, unspecified, uncomplicated; F17.210 Nicotine dependence, cigarettes, uncomplicated; Z59.0 Homelessness; Z56.0 Unemployment, unspecified; Z88.0 Allergy status to penicillin; Z79.2 Long term (current) use of antibiotics; Z79.899 Other long term (current) drug therapy
CPT/HCPCS: 82948; 96372; 99284; J0696; J1885

== ENCOUNTER 2020-03-29 05:30 | Emergency (ER) | payer MEDICAID ==
[~2020-03-29] VITALS: Ht 157.5 cm; Wt 48.5 kg
[~2020-03-29 05:30] MED LIST changes: +LEVO500T2 PO; +NEOM10DR45 RIGHT EAR
[2020-03-29 05:33] VITALS: BP 147/93
[2020-03-29] MEDS ORDERED: NEOM10DR45 RIGHT EAR (07:23)
[2020-03-29] MEDS ORDERED: LEVO500T2 PO (07:23)
[2020-03-29] MEDS ORDERED: naproxen 500mg tablet PO ONE (07:25)
== END 2020-03-29 07:47 | disposition home or self-care (01) ==
LOC: ER 05:33
DX: H60.91 Unspecified otitis externa, right ear (principal); H66.91 Otitis media, unspecified, right ear; J44.9 Chronic obstructive pulmonary disease, unspecified; G89.29 Other chronic pain; F41.9 Anxiety disorder, unspecified; F32.9 Major depressive disorder, single episode, unspecified; F12.90 Cannabis use, unspecified, uncomplicated; F15.90 Other stimulant use, unspecified, uncomplicated; Z59.0 Homelessness; Z56.0 Unemployment, unspecified; Z88.0 Allergy status to penicillin; Z79.899 Other long term (current) drug therapy
CPT/HCPCS: 99283

== ENCOUNTER 2020-07-13 10:40 | Emergency (ER) | payer MEDICAID ==
[~2020-07-13] VITALS: Ht 157.5 cm; Wt 49.6 kg
[2020-07-13 11:00] VITALS: BP 107/65
[2020-07-13] MEDS ORDERED: OFLO5DRO5 RIGHT EAR ×4 (12:42→12:55)
== END 2020-07-13 13:03 | disposition home or self-care (01) ==
LOC: ER 10:40
DX: H92.01 Otalgia, right ear (principal); R42 Dizziness and giddiness; J44.9 Chronic obstructive pulmonary disease, unspecified; G89.29 Other chronic pain; F41.9 Anxiety disorder, unspecified; F32.9 Major depressive disorder, single episode, unspecified; F12.90 Cannabis use, unspecified, uncomplicated; F15.90 Other stimulant use, unspecified, uncomplicated; Z87.01 Personal history of pneumonia (recurrent); Z72.89 Other problems related to lifestyle; Z56.0 Unemployment, unspecified; Z59.0 Homelessness; Z88.0 Allergy status to penicillin; Z79.2 Long term (current) use of antibiotics; Z79.899 Other long term (current) drug therapy
CPT/HCPCS: 99282; 99283

== ENCOUNTER 2020-07-22 10:06 | Emergency (ER) | payer MEDICAID ==
[~2020-07-22] VITALS: Ht 157.5 cm; Wt 52.3 kg
[~2020-07-22 10:06] MED LIST changes: +OFLO5DRO5 RIGHT EAR
[2020-07-22 10:25] VITALS: BP 109/76
== END 2020-07-22 10:47 | disposition home or self-care (01) ==
LOC: ER 10:06
DX: R05 Cough (principal); R19.7 Diarrhea, unspecified; J44.9 Chronic obstructive pulmonary disease, unspecified; R09.89 Other specified symptoms and signs involving the circulatory and respiratory systems; Z20.828 Contact with and (suspected) exposure to other viral communicable diseases; G89.29 Other chronic pain; F41.9 Anxiety disorder, unspecified; F32.9 Major depressive disorder, single episode, unspecified; F17.200 Nicotine dependence, unspecified, uncomplicated; F12.90 Cannabis use, unspecified, uncomplicated; F15.90 Other stimulant use, unspecified, uncomplicated; Z72.89 Other problems related to lifestyle; Z87.01 Personal history of pneumonia (recurrent); Z56.0 Unemployment, unspecified; Z59.0 Homelessness; Z88.0 Allergy status to penicillin; Z79.2 Long term (current) use of antibiotics; Z79.899 Other long term (current) drug therapy
CPT/HCPCS: 36415; 87635; 99283

== ENCOUNTER 2020-08-03 03:58 | Emergency (ER) | payer MEDICAID ==
[~2020-08-03] VITALS: Ht 157.5 cm; Wt 59.1 kg
[2020-08-03 04:06] VITALS: BP 130/81
== END 2020-08-03 05:45 | disposition left against medical advice (07) ==
LOC: ER 03:58
DX: L29.9 Pruritus, unspecified (principal); Z53.21 Procedure and treatment not carried out due to patient leaving prior to being seen by health care provider

== ENCOUNTER 2020-08-03 09:53 | Emergency (ER) | payer MEDICAID ==
--- NOTE | 2020-08-03 11:10 | NUR ---
PT NIL X 3. PER REG PT FLIPPED OFF STAFF AND LEFT THE LOBBY
== END 2020-08-03 12:03 | disposition left against medical advice (07) ==
LOC: ER 09:54
DX: M79.603 Pain in arm, unspecified (principal); Z53.21 Procedure and treatment not carried out due to patient leaving prior to being seen by health care provider

== ENCOUNTER 2020-08-05 17:27 | Emergency (ER) | payer MEDICAID ==
[~2020-08-05] VITALS: Ht 157.5 cm; Wt 54.5 kg
== END 2020-08-05 18:35 | disposition home or self-care (01) ==
LOC: ER 17:27
DX: M25.521 Pain in right elbow (principal); R05 Cough; R21 Rash and other nonspecific skin eruption; J44.9 Chronic obstructive pulmonary disease, unspecified; G89.29 Other chronic pain; M54.9 Dorsalgia, unspecified; F41.9 Anxiety disorder, unspecified; F32.9 Major depressive disorder, single episode, unspecified; Z88.0 Allergy status to penicillin; Z79.899 Other long term (current) drug therapy; Z59.0 Homelessness; Z56.0 Unemployment, unspecified
CPT/HCPCS: 71046; 99283

== ENCOUNTER 2020-08-31 06:49 | Emergency (ER) | payer MEDICAID ==
[~2020-08-31] VITALS: Ht 157.5 cm; Wt 56.8 kg
[2020-08-31 07:22] VITALS: BP 124/86
[2020-08-31] MEDS ORDERED: proCHLORperazine 10 MG/2 ml inj IM ONE (07:25)
== END 2020-08-31 07:59 | disposition home or self-care (01) ==
LOC: ER 06:49
DX: R51.9 Headache, unspecified (principal); H92.02 Otalgia, left ear; R05 Cough; R06.02 Shortness of breath; J44.9 Chronic obstructive pulmonary disease, unspecified; G89.29 Other chronic pain; F41.9 Anxiety disorder, unspecified; F32.9 Major depressive disorder, single episode, unspecified; F17.200 Nicotine dependence, unspecified, uncomplicated; F12.90 Cannabis use, unspecified, uncomplicated; F15.90 Other stimulant use, unspecified, uncomplicated; Z87.01 Personal history of pneumonia (recurrent); Z72.89 Other problems related to lifestyle; Z59.0 Homelessness; Z56.0 Unemployment, unspecified; Z88.0 Allergy status to penicillin; Z79.2 Long term (current) use of antibiotics; Z79.899 Other long term (current) drug therapy
CPT/HCPCS: 96372; 99283; J0780

== ENCOUNTER 2020-09-27 10:27 | Emergency (ER) | payer MEDICAID ==
[~2020-09-27] VITALS: Ht 157.5 cm; Wt 45.5 kg
[2020-09-27 10:36] VITALS: BP 105/72
--- NOTE | 2020-09-27 12:15 | NUR ---
PT BEEN UP SEVERAL TIMES TO WALK HER "SERVICE DOG". PT FREQUENTLY REDIRECTED TO STAY IN DESIGNATED AREA AND WEAR FACE MASK.
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
--- NOTE | 2020-09-27 15:18 | NUR ---
SPOKE WITH NICOLA FROM . CURRENTLY ARRANGEMENTS ARE BEING MADE TO HAVE TRANSPORT PICK PT UP AND TAKE TO [facility].
== END 2020-09-27 16:45 | disposition home or self-care (01) ==
LOC: ER 10:27
DX: R05 Cough (principal); Z20.828 Contact with and (suspected) exposure to other viral communicable diseases; R09.81 Nasal congestion; R06.00 Dyspnea, unspecified; J44.9 Chronic obstructive pulmonary disease, unspecified; G89.29 Other chronic pain; F12.90 Cannabis use, unspecified, uncomplicated; F15.90 Other stimulant use, unspecified, uncomplicated; F17.200 Nicotine dependence, unspecified, uncomplicated; Z87.01 Personal history of pneumonia (recurrent); Z56.0 Unemployment, unspecified; Z59.0 Homelessness; Z88.0 Allergy status to penicillin; Z79.2 Long term (current) use of antibiotics; Z79.899 Other long term (current) drug therapy
CPT/HCPCS: 36415; 71045; 87635; 99283; 99284

== ENCOUNTER 2020-10-26 15:20 | Emergency (ER) | payer MEDICAID ==
[~2020-10-26] VITALS: Ht 154.9 cm; Wt 54.5 kg
[2020-10-26 15:23] VITALS: BP 99/73
[2020-10-26] MEDS ORDERED: ondansetron 4mg rapidly disintigrating tab PO ONE ×2 (15:35→18:40)
[2020-10-26] MEDS ORDERED: ONDA4TAB6 PO (18:41)
== END 2020-10-26 18:53 | disposition home or self-care (01) ==
LOC: ER 15:20
DX: R11.0 Nausea (principal); F10.129 Alcohol abuse with intoxication, unspecified; M79.642 Pain in left hand; J44.9 Chronic obstructive pulmonary disease, unspecified; G89.29 Other chronic pain; F41.9 Anxiety disorder, unspecified; F32.9 Major depressive disorder, single episode, unspecified; F12.90 Cannabis use, unspecified, uncomplicated; F15.90 Other stimulant use, unspecified, uncomplicated; Z87.01 Personal history of pneumonia (recurrent); Z72.89 Other problems related to lifestyle; Z59.0 Homelessness; Z56.0 Unemployment, unspecified; Z88.0 Allergy status to penicillin; Z79.2 Long term (current) use of antibiotics; Z79.899 Other long term (current) drug therapy; Y90.0 Blood alcohol level of less than 20 mg/100 ml
CPT/HCPCS: 73130; 99283

== ENCOUNTER 2020-12-02 22:27 | Emergency (ER) | payer MEDICAID ==
[~2020-12-02 22:27] MED LIST changes: +ONDA4TAB6 PO
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
--- NOTE | 2020-12-02 23:23 | NUR ---
PATIENT LEFT TRIAGE AREA
== END 2020-12-03 00:48 | disposition left against medical advice (07) ==
LOC: ER 22:27
DX: M54.9 Dorsalgia, unspecified (principal); Z53.21 Procedure and treatment not carried out due to patient leaving prior to being seen by health care provider

== ENCOUNTER 2021-01-20 11:24 | Emergency (ER) | payer MEDICAID ==
[~2021-01-20] VITALS: Ht 160 cm; Wt 49.0 kg
[2021-01-20 11:50] VITALS: BP 117/69
[2021-01-20] MEDS ORDERED: CEPH500C2 PO (11:55)
== END 2021-01-20 12:22 | disposition home or self-care (01) ==
LOC: ER 11:26
DX: S61.211A Laceration without foreign body of left index finger without damage to nail, initial encounter (principal); S90.822A Blister (nonthermal), left foot, initial encounter; S90.821A Blister (nonthermal), right foot, initial encounter; J44.9 Chronic obstructive pulmonary disease, unspecified; G89.29 Other chronic pain; F41.9 Anxiety disorder, unspecified; F32.9 Major depressive disorder, single episode, unspecified; F12.90 Cannabis use, unspecified, uncomplicated; F15.90 Other stimulant use, unspecified, uncomplicated; Z59.0 Homelessness; Z56.0 Unemployment, unspecified; Z72.89 Other problems related to lifestyle; Z88.0 Allergy status to penicillin; Z79.899 Other long term (current) drug therapy; W26.0XXA Contact with knife, initial encounter; Y93.89 Activity, other specified; Y92.89 Other specified places as the place of occurrence of the external cause; Y99.8 Other external cause status
CPT/HCPCS: 99283

== ENCOUNTER 2021-03-24 22:07 | Emergency (ER) | payer MEDICAID ==
[~2021-03-24] VITALS: Ht 162.6 cm; Wt 52.7 kg
[2021-03-24 22:37] VITALS: BP 117/57
[2021-03-25] MEDS ORDERED: NEOM10DR45 RIGHT EAR (00:41)
== END 2021-03-25 01:00 | disposition home or self-care (01) ==
LOC: ER 22:08
DX: H92.01 Otalgia, right ear (principal); F41.9 Anxiety disorder, unspecified; G89.29 Other chronic pain; M54.9 Dorsalgia, unspecified; F12.10 Cannabis abuse, uncomplicated; F15.10 Other stimulant abuse, uncomplicated; Z56.0 Unemployment, unspecified; Z59.0 Homelessness; Z88.0 Allergy status to penicillin
CPT/HCPCS: 99283

== ENCOUNTER 2021-06-07 20:48 | Emergency (ER) | payer MEDICAID ==
[~2021-06-07] VITALS: Ht 157.5 cm; Wt 46.0 kg
[2021-06-07 21:21] VITALS: BP 106/76
[2021-06-07] MEDS ORDERED: acetaminophen 325mg tablet PO ONE (22:10)
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
--- NOTE | 2021-06-07 23:00 | NUR ---
PT BACK IN RAP AREA.
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
[2021-06-08] MEDS ORDERED: ketorolac trometh inj. 60 MG/2 ML VIAL IM ONE (00:10)
--- NOTE | 2021-06-08 00:32 | NUR ---
REPORT # [id number] OFFICER DANYELLE
== END 2021-06-08 00:32 | disposition home or self-care (01) ==
LOC: ER 20:49
DX: S00.03XA Contusion of scalp, initial encounter (principal); M25.562 Pain in left knee; R42 Dizziness and giddiness; R51.9 Headache, unspecified; Y08.89XA Assault by other specified means, initial encounter; Y93.9 Activity, unspecified; Y92.89 Other specified places as the place of occurrence of the external cause; Y99.8 Other external cause status
CPT/HCPCS: 70450; 72125; 73564; 96372; 99285; J1885

== ENCOUNTER → 2021-06-23 | Emergency (ER) | payer MEDICAID ==
[~2021-06-23] VITALS: Ht 157.5 cm; Wt 49.4 kg
[~2021-06-23] MED LIST changes: +DOXY100C76 PO
[2021-06-23 21:03] VITALS: BP 125/74
== END | disposition home or self-care (01) ==
LOC: ER 20:58
DX: L08.9 Local infection of the skin and subcutaneous tissue, unspecified (principal); J44.9 Chronic obstructive pulmonary disease, unspecified; G89.29 Other chronic pain; F41.9 Anxiety disorder, unspecified; F32.9 Major depressive disorder, single episode, unspecified; F12.90 Cannabis use, unspecified, uncomplicated; F15.90 Other stimulant use, unspecified, uncomplicated; Z87.01 Personal history of pneumonia (recurrent); Z72.89 Other problems related to lifestyle; Z56.0 Unemployment, unspecified; Z59.00 Homelessness unspecified; Z88.0 Allergy status to penicillin; Z79.2 Long term (current) use of antibiotics; Z79.899 Other long term (current) drug therapy
CPT/HCPCS: 99283

== ENCOUNTER 2021-06-24 11:58 | Emergency (ER) | payer MEDICAID ==
[~2021-06-24] VITALS: Ht 157.5 cm; Wt 56.8 kg
[2021-06-24 12:16] VITALS: BP 130/82
== END 2021-06-24 15:44 | disposition home or self-care (01) ==
LOC: ER 11:59
DX: F10.29 Alcohol dependence with unspecified alcohol-induced disorder (principal); G89.29 Other chronic pain; M54.9 Dorsalgia, unspecified; F41.9 Anxiety disorder, unspecified; F32.9 Major depressive disorder, single episode, unspecified; J44.9 Chronic obstructive pulmonary disease, unspecified; Z56.0 Unemployment, unspecified; Z59.00 Homelessness unspecified; Z88.0 Allergy status to penicillin; Z79.899 Other long term (current) drug therapy
CPT/HCPCS: 99281

== ENCOUNTER 2021-07-20 11:04 | Emergency (ER) | payer MEDICAID ==
[~2021-07-20] VITALS: Ht 157.5 cm; Wt 48.5 kg
[~2021-07-20 11:04] MED LIST changes: -DOXY100C76 PO
[2021-07-20 11:38] VITALS: BP 119/82
[2021-07-20 12:57] LABS: BASOPHILS % (AUTO) 0.5 % (0-1); EOSINOPHILS % (AUTO) 0.7 % (0-6); HEMATOCRIT 43.2 % (35.0-45.0); HEMOGLOBIN 14.6 g/dl (12.0-16.0); LYMPHOCYTES # (AUTO) 1.5 X10'3 (1.1-4.8); MEAN CORPUSCULAR HEMOGLOBIN 32.9 PG (27.0-31.0); MEAN CORPUSCULAR HGB CONC 33.8 g/dL (33.0-36.5); MEAN CORPUSCULAR VOLUME 97.2 FL (78-98); MEAN PLATELET VOLUME 7.5 FL (7.4-10.4); MONOCYTES # (AUTO) 0.4 X10'3 (0-0.9); MONOCYTES % (AUTO) 7.5 % (2-12); NEUTROPHILS # (AUTO) 3.4 X10'3 (1.8-7.7); NEUTROPHILS % (AUTO) 63.3 % (42-75); PLATELET COUNT 316 X10'3 (140-440); RED BLOOD COUNT 4.45 X10'6 (4.20-5.60); RED CELL DISTRIBUTION WIDTH 15.2 % (11.5-14.5); WHITE BLOOD COUNT 5.4 X10'3 (4.5-11.0)
[2021-07-20 13:13] LABS: ALANINE AMINOTRANSFERASE 84 U/L (12-78); ALBUMIN 3.8 G/DL (3.4-5.0); ALBUMIN/GLOBULIN RATIO 0.9 (1.1-1.5); ALKALINE PHOSPHATASE 103 IU/L (46-116); ANION GAP 11 (8-16); ASPARTATE AMINO TRANSFERASE 146 U/L (10-37); BILIRUBIN,TOTAL 0.5 MG/DL (0.1-1.0); BLOOD UREA NITROGEN 17 MG/DL (7-18); BUN/CREATININE RATIO 20.2 (6.6-38.0); CALCIUM 8.7 MG/DL (8.5-10.1); CHLORIDE 101 MMOL/L (99-107); CREATININE 0.84 MG/DL (0.40-0.90); GLUCOSE 101 MG/DL (70-104); LIPASE 269 U/L (73-393); SODIUM 137 MMOL/L (135-145); TOTAL CARBON DIOXIDE 24.6 MMOL/L (24-32); eGFR 70 ML/MIN
[2021-07-20 13:15] LABS: POTASSIUM 4.2 MMOL/L (3.5-5.1)
[2021-07-20 13:39] LABS: URINE HCG NEGATIVE (NEG)
[2021-07-20 13:46] LABS: CLARITY,URINE CLOUDY (Clear); COLOR,URINE YELLOW (Yellow); GLUCOSE, URINE NEGATIVE (Neg); KETONES,URINE NEGATIVE (Neg); LEUKOCYTE ESTERASE ,URINE NEGATIVE (Neg); NITRITES, URINE NEGATIVE (Neg); OCCULT BLOOD,URINE LARGE (Neg); PROTEIN,URINE 100 mg/dl (Neg); UA COLLECTION TYPE CLN CATCH MIDSTREAM; UROBILINOGEN,URINE 0.2 E.U/dL (0.2-1.0)
[2021-07-20 13:48] LABS: AMORPHOUS URATES 3+; BACTERIA,URINE FEW /HPF (Neg); CAL OXALATE CRYSTALS 2+ /HPF (NEGATIVE); HYALINE CASTS 0-3 /LPF (NEGATIVE); MUCUS STRANDS NONE SEEN /LPF (Neg); SQUAMOUS EPITHELIAL CELL,UR MODERATE /LPF (FEW); WBC,URINE 0-4 /HPF (0-4)
[2021-07-20] MEDS ORDERED: FAMO40TA73 PO (23:53)
== END 2021-07-20 18:05 | disposition left against medical advice (07) ==
LOC: ER 11:05
DX: Q89.9 Congenital malformation, unspecified (principal); Z53.21 Procedure and treatment not carried out due to patient leaving prior to being seen by health care provider
CPT/HCPCS: 36415; 80053; 81001; 81025; 83690; 85025

== ENCOUNTER 2021-07-20 19:13 | Emergency (ER) | payer MEDICAID ==
[~2021-07-20] VITALS: Ht 157.5 cm; Wt 43.0 kg
[2021-07-20] MEDS ORDERED: famotidine/PF 10 mg/ml inj IV ONE (22:35)
[2021-07-20] MEDS ORDERED: ondansetron/PF 4mg/2ml inj IV ONE (22:35)
[2021-07-20] MEDS ORDERED: iohexol 350MG/ML 100ml bottle IV ONE (23:10)
[2021-07-20] MEDS ORDERED: FAMO40TA73 PO (23:53)
[2021-07-21 00:07] VITALS: BP 110/68
== END 2021-07-21 00:10 | disposition home or self-care (01) ==
LOC: ER 19:14
DX: R10.84 Generalized abdominal pain (principal); F10.10 Alcohol abuse, uncomplicated; J44.9 Chronic obstructive pulmonary disease, unspecified; G89.29 Other chronic pain; F41.9 Anxiety disorder, unspecified; F32.9 Major depressive disorder, single episode, unspecified; F12.90 Cannabis use, unspecified, uncomplicated; F15.90 Other stimulant use, unspecified, uncomplicated; Z87.01 Personal history of pneumonia (recurrent); Z72.89 Other problems related to lifestyle; Z56.0 Unemployment, unspecified; Z59.00 Homelessness unspecified; Z88.0 Allergy status to penicillin; Z79.2 Long term (current) use of antibiotics; Z79.899 Other long term (current) drug therapy
CPT/HCPCS: 74177; 96374; 96375; 99285; J2405; J3490; Q9967

== ENCOUNTER 2021-08-05 12:31 | Emergency (ER) | payer MEDICAID ==
[~2021-08-05] VITALS: Ht 157.5 cm; Wt 51.0 kg
[~2021-08-05 12:31] MED LIST changes: +FAMO40TA73 PO
[2021-08-05 12:43] VITALS: BP 130/87
--- NOTE | 2021-08-05 12:55 | NUR ---
ELAINE CONTACTED LOG - [id number]
== END 2021-08-05 18:00 | disposition left against medical advice (07) ==
LOC: ER 12:32
DX: M54.2 Cervicalgia (principal); Z53.21 Procedure and treatment not carried out due to patient leaving prior to being seen by health care provider

== ENCOUNTER 2021-08-19 12:18 | Emergency (ER) | payer MEDICAID ==
[~2021-08-19] VITALS: Ht 162.6 cm; Wt 72.7 kg
[2021-08-19 12:20] VITALS: BP 141/102
[2021-08-19] MEDS ORDERED: acetaminophen 325mg tablet PO ONE (12:25)
== END 2021-08-19 13:44 | disposition home or self-care (01) ==
LOC: ER 12:19
DX: M25.531 Pain in right wrist (principal); F41.9 Anxiety disorder, unspecified; F32.9 Major depressive disorder, single episode, unspecified; G89.29 Other chronic pain; M54.9 Dorsalgia, unspecified; J44.9 Chronic obstructive pulmonary disease, unspecified; Z59.00 Homelessness unspecified; Z88.0 Allergy status to penicillin; Z79.899 Other long term (current) drug therapy
CPT/HCPCS: 73110; 99283

== ENCOUNTER 2021-10-15 11:54 | Emergency (ER) | payer MEDICAID ==
[~2021-10-15] VITALS: Ht 152.4 cm; Wt 50.5 kg
[2021-10-15 12:39] VITALS: BP 139/80
== END 2021-10-15 17:41 | disposition left against medical advice (07) ==
LOC: ER 11:55
DX: G43.909 Migraine, unspecified, not intractable, without status migrainosus (principal); Z53.21 Procedure and treatment not carried out due to patient leaving prior to being seen by health care provider

== ENCOUNTER 2021-10-23 08:47 | Emergency (ER) | payer MEDICAID ==
[~2021-10-23] VITALS: Ht 157.5 cm; Wt 51.2 kg
[2021-10-23 08:59] VITALS: BP 104/70
[2021-10-23] MEDS ORDERED: NYST1000 PO (09:27)
[2021-10-23] MEDS ORDERED: ketorolac trometh inj. 60 MG/2 ML VIAL IM ONE (09:35)
== END 2021-10-23 09:35 | disposition home or self-care (01) ==
LOC: ER 08:48
DX: B37.0 Candidal stomatitis (principal); J44.9 Chronic obstructive pulmonary disease, unspecified; G89.29 Other chronic pain; F41.9 Anxiety disorder, unspecified; F32.9 Major depressive disorder, single episode, unspecified; F12.90 Cannabis use, unspecified, uncomplicated; F15.90 Other stimulant use, unspecified, uncomplicated; Z87.01 Personal history of pneumonia (recurrent); Z72.89 Other problems related to lifestyle; Z56.0 Unemployment, unspecified; Z88.0 Allergy status to penicillin; Z79.2 Long term (current) use of antibiotics; Z79.899 Other long term (current) drug therapy
CPT/HCPCS: 99283

== ENCOUNTER 2021-10-31 07:32 | Emergency (ER) | payer MEDICAID ==
[~2021-10-31] VITALS: Ht 157.5 cm; Wt 53.1 kg
[~2021-10-31 07:32] MED LIST changes: +NYST1000 PO
[2021-10-31 07:40] VITALS: BP 127/84
== END 2021-10-31 08:05 | disposition home or self-care (01) ==
LOC: ER 07:35
DX: Z13.89 Encounter for screening for other disorder (principal); F10.10 Alcohol abuse, uncomplicated; J44.9 Chronic obstructive pulmonary disease, unspecified; G89.29 Other chronic pain; F41.9 Anxiety disorder, unspecified; F32.A Depression, unspecified; F12.90 Cannabis use, unspecified, uncomplicated; F15.90 Other stimulant use, unspecified, uncomplicated; Z87.01 Personal history of pneumonia (recurrent); Z72.89 Other problems related to lifestyle; Z59.00 Homelessness unspecified; Z56.0 Unemployment, unspecified; Z88.0 Allergy status to penicillin; Z79.2 Long term (current) use of antibiotics; Z79.899 Other long term (current) drug therapy
CPT/HCPCS: 99281

== ENCOUNTER 2021-11-05 09:21 | Emergency (ER) | payer MEDICAID ==
[~2021-11-05] VITALS: Ht 157.5 cm; Wt 52.1 kg
[~2021-11-05 09:21] MED LIST changes: -NYST1000 PO
[2021-11-05 09:23] VITALS: BP 148/107
[2021-11-05] MEDS ORDERED: ondansetron/PF 4mg/2ml inj IV ONE (09:30)
[2021-11-05] MEDS ORDERED: LORazepam 2 mg/ml vial IV ONE (09:30)
[2021-11-05] MEDS ORDERED: folic acid 1mg/0.2ml inj IV ONE (09:30)
[2021-11-05] MEDS ORDERED: normal saline 1000ML IV soln IVB ONE (09:30)
[2021-11-05] MEDS ORDERED: thiamine 100mg/ml 2ml inj. IV ONE (09:30)
[2021-11-05 10:07] LABS: BASOPHILS # (AUTO) 0.1 X10'3 (0-0.2); BASOPHILS % (AUTO) 1.8 % (0-1); EOSINOPHILS # (AUTO) 0.1 X10'3 (0-0.9); EOSINOPHILS % (AUTO) 1.2 % (0-6); HEMATOCRIT 43.3 % (35.0-45.0); HEMOGLOBIN 14.6 g/dl (12.0-16.0); LYMPHOCYTES % (AUTO) 22.5 % (21-51); MEAN CORPUSCULAR HEMOGLOBIN 32.8 PG (27.0-31.0); MEAN CORPUSCULAR HGB CONC 33.7 g/dL (33.0-36.5); MEAN CORPUSCULAR VOLUME 97.2 FL (78-98); MEAN PLATELET VOLUME 7.7 FL (7.4-10.4); MONOCYTES # (AUTO) 0.5 X10'3 (0-0.9); MONOCYTES % (AUTO) 10.7 % (2-12); NEUTROPHILS # (AUTO) 2.8 X10'3 (1.8-7.7); NEUTROPHILS % (AUTO) 63.8 % (42-75); PLATELET COUNT 282 X10'3 (140-440); RED BLOOD COUNT 4.46 X10'6 (4.20-5.60); RED CELL DISTRIBUTION WIDTH 14.3 % (11.5-14.5); WHITE BLOOD COUNT 4.4 X10'3 (4.5-11.0)
[2021-11-05 11:04] LABS: ALANINE AMINOTRANSFERASE 92 U/L (12-78); ALBUMIN 4.1 G/DL (3.4-5.0); ALBUMIN/GLOBULIN RATIO 1.1 (1.1-1.5); ALKALINE PHOSPHATASE 101 IU/L (46-116); ANION GAP 12 (8-16); ASPARTATE AMINO TRANSFERASE 106 U/L (10-37); BILIRUBIN,TOTAL 0.6 MG/DL (0.1-1.0); BLOOD UREA NITROGEN 19 MG/DL (7-18); BUN/CREATININE RATIO 30.2 (6.6-38.0); CALCIUM 9.5 MG/DL (8.5-10.1); CHLORIDE 100 MMOL/L (99-107); CREATININE 0.63 MG/DL (0.40-0.90); GLUCOSE 119 MG/DL (70-104); SODIUM 139 MMOL/L (135-145); TOTAL CARBON DIOXIDE 26.6 MMOL/L (24-32); TOTAL PROTEIN 7.9 G/DL (6.4-8.2); eGFR > 90 ML/MIN
[2021-11-05] MEDS ORDERED: LORA-269 PO (11:31)
[2021-11-05] MEDS ORDERED: ONDA4TAB12 PO (11:31)
[2021-11-05] MEDS ORDERED: thiamine 100mg tablet PO ONE (11:35)
[2021-11-05] MEDS ORDERED: folic acid 1mg tablet PO ONE (11:35)
[2021-11-05] MEDS ORDERED: ondansetron 4mg rapidly disintigrating tab PO ONE (11:35)
[2021-11-05] MEDS ORDERED: LORazepam 1 MG tablet PO ONE (11:35)
== END 2021-11-05 12:09 | disposition home or self-care (01) ==
LOC: ER 09:22
DX: F10.29 Alcohol dependence with unspecified alcohol-induced disorder (principal); F10.239 Alcohol dependence with withdrawal, unspecified; G89.29 Other chronic pain; M54.9 Dorsalgia, unspecified; F41.9 Anxiety disorder, unspecified; F12.10 Cannabis abuse, uncomplicated; F15.10 Other stimulant abuse, uncomplicated; J44.9 Chronic obstructive pulmonary disease, unspecified; Z59.00 Homelessness unspecified; Z56.0 Unemployment, unspecified; Z88.0 Allergy status to penicillin; Z79.899 Other long term (current) drug therapy; Z02.89 Encounter for other administrative examinations
CPT/HCPCS: 36415; 80053; 85025; 93005; 99284

== ENCOUNTER 2022-02-14 11:34 | Emergency (ER) | payer MEDICAID ==
[~2022-02-14] VITALS: Ht 157.5 cm; Wt 50.9 kg
[~2022-02-14 11:34] MED LIST changes: +LORA-269 PO; +ONDA4TAB12 PO
[2022-02-14 11:36] VITALS: BP 175/106
== END 2022-02-14 13:22 | disposition left against medical advice (07) ==
LOC: ER 11:35
DX: R51.9 Headache, unspecified (principal); Z53.21 Procedure and treatment not carried out due to patient leaving prior to being seen by health care provider

== ENCOUNTER 2022-02-16 05:05 | Emergency (ER) | payer MEDICAID ==
[~2022-02-16] VITALS: Ht 157.5 cm; Wt 51.5 kg
[2022-02-16 05:21] VITALS: BP 148/95
--- NOTE | 2022-02-16 08:28 | NUR ---
Patient told registration that she was leaving.
== END 2022-02-16 08:29 | disposition left against medical advice (07) ==
LOC: ER 05:05
DX: H57.12 Ocular pain, left eye (principal); Z53.21 Procedure and treatment not carried out due to patient leaving prior to being seen by health care provider

== ENCOUNTER 2022-03-14 13:54 | Emergency (ER) | payer MEDICAID ==
[~2022-03-14] VITALS: Ht 157.5 cm; Wt 50.0 kg
[2022-03-14 14:55] LABS: CLARITY,URINE CLEAR (Clear); COLOR,URINE YELLOW (Yellow); GLUCOSE, URINE NEGATIVE (Neg); KETONES,URINE NEGATIVE (Neg); LEUKOCYTE ESTERASE ,URINE NEGATIVE (Neg); NITRITES, URINE NEGATIVE (Neg); OCCULT BLOOD,URINE SMALL (Neg); PH,URINE 5.5 (4.8-8.0); PROTEIN,URINE 30 mg/dl (Neg)
[2022-03-14 15:01] LABS: BASOPHILS # (AUTO) 0.1 X10'3 (0-0.2); BASOPHILS % (AUTO) 1.3 % (0-1); HEMATOCRIT 44.9 % (35.0-45.0); HEMOGLOBIN 15.4 g/dl (12.0-16.0); LYMPHOCYTES # (AUTO) 2.1 X10'3 (1.1-4.8); LYMPHOCYTES % (AUTO) 41.7 % (21-51); MEAN CORPUSCULAR HEMOGLOBIN 32.6 PG (27.0-31.0); MEAN CORPUSCULAR HGB CONC 34.2 g/dL (33.0-36.5); MEAN CORPUSCULAR VOLUME 95.2 FL (78-98); MEAN PLATELET VOLUME 7.6 FL (7.4-10.4); MONOCYTES # (AUTO) 0.6 X10'3 (0-0.9); MONOCYTES % (AUTO) 11.3 % (2-12); NEUTROPHILS # (AUTO) 2.3 X10'3 (1.8-7.7); NEUTROPHILS % (AUTO) 44.7 % (42-75); PLATELET COUNT 218 X10'3 (140-440); RED BLOOD COUNT 4.71 X10'6 (4.20-5.60); RED CELL DISTRIBUTION WIDTH 15.6 % (11.5-14.5); WHITE BLOOD COUNT 5.1 X10'3 (4.5-11.0)
[2022-03-14 15:01] LABS: UA COLLECTION TYPE CLN CATCH MIDSTREAM
[2022-03-14 15:13] LABS: WBC,URINE 0-4 /HPF (0-4)
[2022-03-14 15:14] LABS: BACTERIA,URINE 1+ /HPF (Neg); MUCUS STRANDS MODERATE /LPF (Neg); RBC,URINE NONE SEEN /HPF (0-2); SQUAMOUS EPITHELIAL CELL,UR MANY /LPF (FEW)
[2022-03-14 15:17] LABS: ALANINE AMINOTRANSFERASE 131 U/L (12-78); ALBUMIN 4.4 G/DL (3.4-5.0); ALKALINE PHOSPHATASE 95 IU/L (46-116); ANION GAP 14 (8-16); ASPARTATE AMINO TRANSFERASE 168 U/L (10-37); BILIRUBIN,TOTAL 0.6 MG/DL (0.1-1.0); BLOOD UREA NITROGEN 14 MG/DL (7-18); BUN/CREATININE RATIO 19.4 (6.6-38.0); CALCIUM 9.4 MG/DL (8.5-10.1); CHLORIDE 100 MMOL/L (99-107); CREATININE 0.72 MG/DL (0.40-0.90); GLUCOSE 172 MG/DL (70-104); LIPASE 353 U/L (73-393); POTASSIUM 3.4 MMOL/L (3.5-5.1); SODIUM 140 MMOL/L (135-145); TOTAL CARBON DIOXIDE 26.2 MMOL/L (24-32); TOTAL PROTEIN 8.6 G/DL (6.4-8.2); eGFR 83 ML/MIN
[2022-03-14] MEDS ORDERED: OLANZapine 2.5MG tablet PO ONE (16:05)
[2022-03-14 16:13] VITALS: BP 109/79
[2022-03-14] MEDS ORDERED: LORazepam 1 MG tablet PO ONE (16:20)
[2022-03-14 16:46] LABS: ETHANOL 0.272 GM/DL (0.0-0.010)
== END 2022-03-14 16:31 | disposition home or self-care (01) ==
LOC: ER 13:55
DX: F10.29 Alcohol dependence with unspecified alcohol-induced disorder (principal); K70.10 Alcoholic hepatitis without ascites; J44.9 Chronic obstructive pulmonary disease, unspecified; G89.29 Other chronic pain; M54.50 Low back pain, unspecified; F17.200 Nicotine dependence, unspecified, uncomplicated; F12.90 Cannabis use, unspecified, uncomplicated; F15.20 Other stimulant dependence, uncomplicated; Z88.0 Allergy status to penicillin; Z59.00 Homelessness unspecified; Z56.0 Unemployment, unspecified
CPT/HCPCS: 36415; 80053; 80320; 81001; 83690; 85025; 99283

== ENCOUNTER 2022-07-11 19:01 | Emergency (ER) | payer MEDICAID | END 2022-07-11 20:10 | disposition left against medical advice (07) | LOC: ER 19:03 | DX: L02.91 Cutaneous abscess, unspecified (principal); Z53.21 Procedure and treatment not carried out due to patient leaving prior to being seen by health care provider ==

== ENCOUNTER 2022-10-03 14:47 | Emergency (ER) | payer MEDICAID ==
[~2022-10-03] VITALS: Ht 157.5 cm; Wt 54.0 kg
[2022-10-03 14:49] VITALS: BP 140/91
[2022-10-03 15:28] LABS: BASOPHILS # (AUTO) 0.1 X10'3 (0-0.2); BASOPHILS % (AUTO) 1.8 % (0-1); EOSINOPHILS # (AUTO) 0.1 X10'3 (0-0.9); EOSINOPHILS % (AUTO) 1.3 % (0-6); HEMATOCRIT 46.5 % (35.0-45.0); HEMOGLOBIN 15.6 g/dl (12.0-16.0); LYMPHOCYTES # (AUTO) 2.2 X10'3 (1.1-4.8); LYMPHOCYTES % (AUTO) 54.9 % (21-51); MEAN CORPUSCULAR HEMOGLOBIN 33.8 PG (27.0-31.0); MEAN CORPUSCULAR HGB CONC 33.6 g/dL (33.0-36.5); MEAN CORPUSCULAR VOLUME 100.5 FL (78-98); MONOCYTES # (AUTO) 0.4 X10'3 (0-0.9); NEUTROPHILS # (AUTO) 1.2 X10'3 (1.8-7.7); PLATELET COUNT 155 X10'3 (140-440); RED BLOOD COUNT 4.63 X10'6 (4.20-5.60); RED CELL DISTRIBUTION WIDTH 15.4 % (11.5-14.5)
[2022-10-03 15:35] LABS: ALANINE AMINOTRANSFERASE 147 U/L (12-78); ALBUMIN 4.4 G/DL (3.4-5.0); ALBUMIN/GLOBULIN RATIO 1.2 (1.1-1.5); ALKALINE PHOSPHATASE 86 IU/L (46-116); ANION GAP 11 (8-16); ASPARTATE AMINO TRANSFERASE 296 U/L (10-37); BILIRUBIN,TOTAL 0.5 MG/DL (0.1-1.0); BLOOD UREA NITROGEN 11 MG/DL (7-18); BUN/CREATININE RATIO 18.6 (6.6-38.0); CALCIUM 9.3 MG/DL (8.5-10.1); CHLORIDE 97 MMOL/L (99-107); CREATININE 0.59 MG/DL (0.40-0.90); ETHANOL 0.296 GM/DL (0.0-0.010); GLUCOSE 109 MG/DL (70-104); POTASSIUM 3.3 MMOL/L (3.5-5.1); SODIUM 139 MMOL/L (135-145); TOTAL CARBON DIOXIDE 30.6 MMOL/L (24-32); eGFR > 90 ML/MIN
[2022-10-03 15:40] LABS: URINE AMPHETAMINE SCREEN NEGATIVE (Neg); URINE BARBITUATE SCREEN NEGATIVE (Neg); URINE BENZODIAZEPINES SCREEN POSITIVE (Neg); URINE CANNABINOID SCREEN POSITIVE (Neg); URINE COCAINE SCREEN NEGATIVE (Neg); URINE METHADONE SCREEN NEGATIVE (Neg); URINE OPIATE SCREEN NEGATIVE (Neg); URINE PHENCYCLIDINE SCREEN NEGATIVE (Neg)
[2022-10-03 15:50] LABS: CLARITY,URINE SLIGHTLY CLOUDY (Clear); COLOR,URINE YELLOW (Yellow); GLUCOSE, URINE NEGATIVE (Neg); KETONES,URINE TRACE mg/dl (Neg); LEUKOCYTE ESTERASE ,URINE NEGATIVE (Neg); NITRITES, URINE NEGATIVE (Neg); OCCULT BLOOD,URINE SMALL (Neg); PROTEIN,URINE 100 mg/dl (Neg)
[2022-10-03 16:06] LABS: UA COLLECTION TYPE CLN CATCH MIDSTREAM
[2022-10-03 16:08] LABS: BACTERIA,URINE 3+ /HPF (Neg)
[2022-10-03 16:09] LABS: MUCUS STRANDS MANY /LPF (Neg); SQUAMOUS EPITHELIAL CELL,UR MANY /LPF (FEW); WBC CLUMPS,URINE FEW /HPF (NEGATIVE)
[2022-10-03 16:39] LABS: EOSINOPHILS % (MANUAL) 0.5 % (0-6); MONOCYTES % (MANUAL) 15.5 % (2-12); PLATELET ESTIMATE NORMAL; TOTAL CELLS COUNTED 200
== END 2022-10-03 16:32 | disposition home or self-care (01) ==
LOC: ER 14:48
DX: F10.129 Alcohol abuse with intoxication, unspecified (principal); J44.9 Chronic obstructive pulmonary disease, unspecified; G89.29 Other chronic pain; F41.9 Anxiety disorder, unspecified; F32.9 Major depressive disorder, single episode, unspecified; F12.90 Cannabis use, unspecified, uncomplicated; F15.90 Other stimulant use, unspecified, uncomplicated; Z59.00 Homelessness unspecified; Z56.0 Unemployment, unspecified; Z88.0 Allergy status to penicillin; Z79.899 Other long term (current) drug therapy; Y90.9 Presence of alcohol in blood, level not specified
CPT/HCPCS: 36415; 80053; 80305; 80320; 81001; 82948; 85007; 85025; 99283

== ENCOUNTER 2022-11-20 13:57 | Emergency (ER) | payer MEDICAID ==
[~2022-11-20] VITALS: Ht 157.5 cm; Wt 52.3 kg
[2022-11-20 14:57] VITALS: BP 149/96
[2022-11-20] MEDS ORDERED: normal saline 1000ML IV soln IVB ONE (15:30)
[2022-11-20] MEDS ORDERED: ondansetron/PF 4mg/2ml inj IV ONE (15:30)
[2022-11-20] MEDS ORDERED: ondansetron 4mg rapidly disintigrating tab PO ONE (16:00)
[2022-11-20 16:14] LABS: BASOPHILS # (AUTO) 0.1 X10'3 (0-0.2); EOSINOPHILS % (AUTO) 0.1 % (0-6); LYMPHOCYTES # (AUTO) 0.7 X10'3 (1.1-4.8); MONOCYTES # (AUTO) 0.6 X10'3 (0-0.9); WHITE BLOOD COUNT 3.7 X10'3 (4.5-11.0)
[2022-11-20 16:16] LABS: BASOPHILS % (AUTO) 2.2 % (0-1); HEMATOCRIT 41.8 % (35.0-45.0); HEMOGLOBIN 14.1 g/dl (12.0-16.0); LYMPHOCYTES % (AUTO) 18.7 % (21-51); MEAN CORPUSCULAR HEMOGLOBIN 34.2 PG (27.0-31.0); MEAN CORPUSCULAR HGB CONC 33.7 g/dL (33.0-36.5); MEAN CORPUSCULAR VOLUME 101.5 FL (78-98); MEAN PLATELET VOLUME 7.8 FL (7.4-10.4); MONOCYTES % (AUTO) 15.3 % (2-12); NEUTROPHILS # (AUTO) 2.4 X10'3 (1.8-7.7); NEUTROPHILS % (AUTO) 63.7 % (42-75); PLATELET COUNT 166 X10'3 (140-440); RED BLOOD COUNT 4.11 X10'6 (4.20-5.60); RED CELL DISTRIBUTION WIDTH 14.9 % (11.5-14.5)
[2022-11-20 16:23] LABS: ALANINE AMINOTRANSFERASE 143 U/L (12-78); ALBUMIN 4.4 G/DL (3.4-5.0); ALBUMIN/GLOBULIN RATIO 1.2 (1.1-1.5); ALKALINE PHOSPHATASE 97 IU/L (46-116); ASPARTATE AMINO TRANSFERASE 270 U/L (10-37); BLOOD UREA NITROGEN 15 MG/DL (7-18); BUN/CREATININE RATIO 22.7 (6.6-38.0); CALCIUM 9.1 MG/DL (8.5-10.1); CREATININE 0.66 MG/DL (0.40-0.90); GLUCOSE 118 MG/DL (70-104); LIPASE 112 U/L (73-393); TOTAL CARBON DIOXIDE 17.5 MMOL/L (24-32); TOTAL PROTEIN 8.1 G/DL (6.4-8.2); eGFR > 90 ML/MIN
[2022-11-20 16:37] LABS: ANION GAP 26 (8-16); CHLORIDE 94 MMOL/L (99-107); POTASSIUM 4.3 MMOL/L (3.5-5.1); SODIUM 137 MMOL/L (135-145)
[2022-11-20] MEDS ORDERED: ONDA4TAB12 PO (16:58)
[2022-11-20] MEDS ORDERED: acetaminophen 325mg tablet PO ONE (17:15)
== END 2022-11-20 17:24 | disposition home or self-care (01) ==
LOC: ER 13:58
DX: E86.0 Dehydration (principal); R11.2 Nausea with vomiting, unspecified; R51.9 Headache, unspecified; F10.10 Alcohol abuse, uncomplicated; J44.9 Chronic obstructive pulmonary disease, unspecified; G89.29 Other chronic pain; F41.9 Anxiety disorder, unspecified; F32.9 Major depressive disorder, single episode, unspecified; F12.90 Cannabis use, unspecified, uncomplicated; F15.90 Other stimulant use, unspecified, uncomplicated; Z59.00 Homelessness unspecified; Z56.0 Unemployment, unspecified; Z72.89 Other problems related to lifestyle; Z88.0 Allergy status to penicillin; Z79.899 Other long term (current) drug therapy; Y90.9 Presence of alcohol in blood, level not specified
CPT/HCPCS: 36415; 80053; 83690; 85025; 96360; 99284; J7030

== ENCOUNTER 2023-03-26 13:04 | Emergency (ER) | payer MEDICAID | END 2023-03-26 13:56 | disposition left against medical advice (07) | LOC: ER 13:04 | DX: Z53.21 Procedure and treatment not carried out due to patient leaving prior to being seen by health care provider (principal) ==

== ENCOUNTER 2023-05-23 16:37 | Emergency (ER) | payer MEDICAID ==
[~2023-05-23] VITALS: Ht 157.5 cm; Wt 50.0 kg
[2023-05-23 16:46] VITALS: BP 123/88; PULSE 101; RESP 18; TEMP 97.3; O2SAT 98
== END 2023-05-23 19:10 | disposition home or self-care (01) ==
LOC: ER 16:38
DX: M79.604 Pain in right leg (principal); M79.605 Pain in left leg; F10.10 Alcohol abuse, uncomplicated; F12.90 Cannabis use, unspecified, uncomplicated; F15.90 Other stimulant use, unspecified, uncomplicated; J44.9 Chronic obstructive pulmonary disease, unspecified; Z88.0 Allergy status to penicillin; Z79.899 Other long term (current) drug therapy; Z88.1 Allergy status to other antibiotic agents; Z88.2 Allergy status to sulfonamides; Y90.9 Presence of alcohol in blood, level not specified
CPT/HCPCS: 99283

== ENCOUNTER 2023-07-19 09:38 | Emergency (ER) | payer MEDICAID ==
[~2023-07-19] VITALS: Ht 157.5 cm; Wt 49.2 kg
[2023-07-19] MEDS ORDERED: HYDROcodone/acetaminophen 5mg/325mg tablet PO ONE (12:00)
[2023-07-19 13:06] VITALS: BP 129/98; PULSE 97; RESP 18; TEMP 98.2; O2SAT 96
== END 2023-07-19 13:12 | disposition home or self-care (01) ==
LOC: ER 09:39
DX: G43.909 Migraine, unspecified, not intractable, without status migrainosus (principal); Z20.822 Contact with and (suspected) exposure to COVID-19; F10.10 Alcohol abuse, uncomplicated; J44.9 Chronic obstructive pulmonary disease, unspecified; G89.29 Other chronic pain; F12.90 Cannabis use, unspecified, uncomplicated; F15.90 Other stimulant use, unspecified, uncomplicated; Z56.0 Unemployment, unspecified; Z59.00 Homelessness unspecified; Z79.899 Other long term (current) drug therapy; Z88.0 Allergy status to penicillin
CPT/HCPCS: 36415; 70450; 87811; 99284

== ENCOUNTER 2023-07-28 10:18 | Inpatient (IN) | payer MEDICAID ==
[~2023-07-28] VITALS: Ht 157.5 cm; Wt 51.4 kg
[2023-07-28 11:22] LABS: BASOPHILS # (AUTO) 0.1 X10'3 (0-0.2); BASOPHILS % (AUTO) 0.8 % (0-1); EOSINOPHILS # (AUTO) 0.1 X10'3 (0-0.9); EOSINOPHILS % (AUTO) 0.5 % (0-6); HEMATOCRIT 46.9 % (35.0-45.0); HEMOGLOBIN 16.1 g/dl (12.0-16.0); LYMPHOCYTES # (AUTO) 0.4 X10'3 (1.1-4.8); LYMPHOCYTES % (AUTO) 2.8 % (21-51); MEAN CORPUSCULAR HEMOGLOBIN 37.6 PG (27.0-31.0); MEAN CORPUSCULAR HGB CONC 34.4 g/dL (33.0-36.5); MEAN CORPUSCULAR VOLUME 109.3 FL (78-98); MEAN PLATELET VOLUME 9.3 FL (7.4-10.4); MONOCYTES # (AUTO) 0.8 X10'3 (0-0.9); MONOCYTES % (AUTO) 6.3 % (2-12); NEUTROPHILS # (AUTO) 11.3 X10'3 (1.8-7.7); NEUTROPHILS % (AUTO) 89.6 % (42-75); PLATELET COUNT 114 X10'3 (140-440); RED BLOOD COUNT 4.29 X10'6 (4.20-5.60); RED CELL DISTRIBUTION WIDTH 15.5 % (11.5-14.5); WHITE BLOOD COUNT 12.6 X10'3 (4.5-11.0)
[2023-07-28 11:36] LABS: ALANINE AMINOTRANSFERASE 92 U/L (12-78); ALBUMIN 4.9 G/DL (3.4-5.0); ALKALINE PHOSPHATASE 143 IU/L (46-116); ANION GAP 26 (8-16); BILIRUBIN,TOTAL 1.4 MG/DL (0.1-1.0); BLOOD UREA NITROGEN 31 MG/DL (7-18); BUN/CREATININE RATIO 24.4 (10.0-20.0); CALCIUM 10.6 MG/DL (8.5-10.1); CHLORIDE 87 MMOL/L (99-107); CREATININE 1.27 MG/DL (0.40-0.90); GLUCOSE 169 MG/DL (70-104); SODIUM 127 MMOL/L (135-145); TOTAL PROTEIN 9.6 G/DL (6.4-8.2); eCRCL 37 ML/MIN; eGFR 43 ML/MIN
[2023-07-28 11:38] LABS: ASPARTATE AMINO TRANSFERASE 127 U/L (10-37); POTASSIUM 3.8 MMOL/L (3.5-5.1)
[2023-07-28 11:46] LABS: TOTAL CARBON DIOXIDE 14.3 MMOL/L (24-32)
[2023-07-28 11:55] LABS: LIPASE > 375 U/L (16-77)
[2023-07-28] MEDS ORDERED: ondansetron/PF 4mg/2ml inj IV ONE (13:15)
[2023-07-28] MEDS ORDERED: normal saline 1000ml 1,000 ML IV ONE (13:15)
[2023-07-28 13:28] LABS: PRO BRAIN NATRIURETIC PEPTIDE 3360 PG/ML (0-125)
[2023-07-28] MEDS ORDERED: ringers solution, lacted 1,000 ML IV ONE (15:00)
[2023-07-28] MEDS ORDERED: iohexol 300mg/ml 100ml inj. ONE (15:25)
[2023-07-28 15:51] LABS: BILIRUBIN,URINE LARGE (Neg); CLARITY,URINE CLOUDY (Clear); COLOR,URINE YELLOW (Yellow); GLUCOSE, URINE NEGATIVE (Neg); KETONES,URINE 40 mg/dl (Neg); LEUKOCYTE ESTERASE ,URINE NEGATIVE (Neg); NITRITES, URINE NEGATIVE (Neg); OCCULT BLOOD,URINE MODERATE (Neg); PROTEIN,URINE >=300 mg/dl (Neg)
[2023-07-28 15:53] LABS: URINE HCG NEGATIVE (NEG)
[2023-07-28 15:56] LABS: UA COLLECTION TYPE CLN CATCH MIDSTREAM
[2023-07-28 15:57] LABS: HYALINE CASTS >30 /LPF (NEGATIVE)
[2023-07-28 15:59] LABS: BACTERIA,URINE FEW /HPF (Neg); SQUAMOUS EPITHELIAL CELL,UR MANY /LPF (FEW); TRANSITIONAL EPI CELLS,URINE FEW /HPF
[2023-07-28 16:08] LABS: APTT 29 SECONDS (22-32); PROTHROMBIN TIME 10.3 SECONDS (9.0-12.0)
[2023-07-28] MEDS ORDERED: levoFLOXACIN-Levaquin 500mg/D5 100 ML IV ONE (16:45)
[2023-07-28] MEDS ORDERED: morphine 4 MG/ML inj SYRINge IV ONE (16:55)
[2023-07-28] MEDS ORDERED: potassium Cl 40MEQ/1/2NS 520ml 520 ML IV PRN (17:10)
[2023-07-28] MEDS ORDERED: ondansetron/PF 4mg/2ml inj IV PRN (17:10)
[2023-07-28] MEDS ORDERED: magnesium Cl slow-release 64mg tablet PO PRN (17:10)
[2023-07-28] MEDS ORDERED: magnesium 4gm in 100ml NS 100 ML IV PRN (17:10)
[2023-07-28] MEDS ORDERED: morphine 2 MG/ML inj. syringe IV PRN ×2 (17:10→18:30)
[2023-07-28] MEDS ORDERED: mag hydrox/Alum hydrox/simeth 30ml oral suspension PO PRN (17:10)
[2023-07-28] MEDS ORDERED: magnesium hydroxide 30ml (MOM) UD suspension PO PRN (17:10)
[2023-07-28] MEDS ORDERED: normal saline 1000ml 1,000 ML IV SCH (17:10)
[2023-07-28] MEDS ORDERED: acetaminophen 325mg tablet PO PRN (17:10)
[2023-07-28] MEDS ORDERED: potassium Cl 20 mEq SR tablet PO PRN ×2 (17:10)
[2023-07-28] MEDS ORDERED: magnesium 2GM in 50ml NS 50 ML IV PRN (17:10)
[2023-07-28] MEDS ORDERED: folic acid 1mg/0.2ml inj IV SCH (17:45)
[2023-07-28] MEDS ORDERED: LORazepam 2 mg/ml vial IV PRN (17:45)
[2023-07-28] MEDS ORDERED: haloperidol 5mg tablet PO PRN (17:45)
[2023-07-28] MEDS ORDERED: dextrose 50%-water 50ml dispensing syringe IV PRN (17:45)
[2023-07-28] MEDS ORDERED: haloperidol lactate 5mg/ml inj IM PRN (17:45)
[2023-07-28 18:23] LABS: AMYLASE 109 U/L (25-115)
[2023-07-28 18:40] LABS: ETHANOL < 10 MG/DL (<10)
--- NOTE | 2023-07-28 19:06 | NUR ---
CONTACTED PHARMACY FOR COMPATIBILITY OF FLUIDS AND MEDS. PT REFUSES ANOTHER IV LINE. WILL HAVE TO GIVE MEDS AND FLUIDS INDIVIDUALLY
[2023-07-28] MEDS ORDERED: K and/or MAG REPLACEMENT MC SCH (20:00)
[2023-07-28] MEDS ORDERED: docusate sod 100mg capsule PO SCH (20:00)
[2023-07-28] MEDS ORDERED: heparin, porcine 5000 units/ml vial SQ SCH (20:00)
[2023-07-28] MEDS ORDERED: thiamine 100mg/ml 2ml inj. IV SCH (21:00)
--- NOTE | 2023-07-28 21:37 | NUR ---
PT UP OOB TAKING ALL LINES OFF HAS REMOVED GOWN AND PLACED PERSONAL CLOTHING ON. PT RIPPED OUT IV. PT STATES SHE IS LEAVING. PT REDIRECTED AND CONT TO TRY TO LEAVE, PT AGREEABLE TO SPEAK W/ MD REGARDING LEAVING AMA. NOTIFIED, MD AT BEDSIDE SPEAKING W/ PT RE AMA, EDUACATED RVB. PT CONT TO WANT TO LEAVE. AMA FORM SIGNED BY PT AND MD. CRN NOTIFIED. CAB CALLED FOR PT.
--- NOTE | 2023-07-28 21:40 | NUR ---
PT JUST APPROACHED NURSES STATION STATING SHE IS LEAVING AND WILL WAIT OUTSIDE. PT REDIRECTED AND ASKED TO STAY IN ROOM UNTIL CAN COMES FOR SAFETY. PT REFUSED STATING SHE WILL WAIT OUTSIDE, REFUSED WC, WALKED ROB W/ SEMI-STEADY GAIT PER BASELINE. CRN NOTIFIED.
[2023-07-28 21:42] VITALS: BP 123/86; PULSE 92; RESP 18; TEMP 98; O2SAT 92
[2023-07-30] MEDS ORDERED: LORazepam 1 MG tablet PO PRN (17:45)
[2023-07-30] MEDS ORDERED: LORazepam 2 mg/ml vial IV PRN (17:45)
[2023-08-01] MEDS ORDERED: LORazepam 2 mg/ml vial IV PRN (17:45)
[2023-08-01] MEDS ORDERED: LORazepam 1 MG tablet PO PRN (17:45)
== END 2023-07-28 22:48 | disposition left against medical advice (07) | DRG 282 ==
LOC: ER 10:18 → ED HOLD 17:11
PROVIDERS: ADMIT Internal Medicine; ATTEND Internal Medicine
PROC: BW211ZZ Computerized Tomography (CT Scan) of Abdomen and Pelvis using Low Osmolar Contrast (ICD-10-PCS; principal; 2023-07-28)
DX: K85.20 Alcohol induced acute pancreatitis without necrosis or infection (principal); R65.10 Systemic inflammatory response syndrome (SIRS) of non-infectious origin without acute organ dysfunction; F32.A Depression, unspecified; M54.9 Dorsalgia, unspecified; F10.239 Alcohol dependence with withdrawal, unspecified; F41.9 Anxiety disorder, unspecified; G89.29 Other chronic pain; E87.1 Hypo-osmolality and hyponatremia; N18.30 Chronic kidney disease, stage 3 unspecified; J44.9 Chronic obstructive pulmonary disease, unspecified; Z53.21 Procedure and treatment not carried out due to patient leaving prior to being seen by health care provider; Z79.899 Other long term (current) drug therapy; Z88.0 Allergy status to penicillin; Z59.00 Homelessness unspecified
CPT/HCPCS: 36415; 70450; 71045; 74177; 80053; 80320; 81001; 81025; 82150; 83605; 83690; 83880; 84484; 85025; 85610; 85730; 99285; G0378; J1644; J1956; J2270; J2405; J3411; J3490; J7030; J7120; Q9967

== ENCOUNTER 2023-08-06 11:45 | Emergency (ER) | payer MEDICAID ==
[~2023-08-06] VITALS: Ht 157.5 cm; Wt 51.4 kg
[2023-08-06 11:50] VITALS: TEMP 96.9
[2023-08-06 12:26] LABS: BASOPHILS # (AUTO) 0.1 X10'3 (0-0.2); MEAN CORPUSCULAR VOLUME 108.7 FL (78-98); MEAN PLATELET VOLUME 7.6 FL (7.4-10.4); MONOCYTES # (AUTO) 0.5 X10'3 (0-0.9); RED CELL DISTRIBUTION WIDTH 15.2 % (11.5-14.5)
[2023-08-06 12:29] LABS: EOSINOPHILS % (AUTO) 0.5 % (0-6); HEMATOCRIT 42.3 % (35.0-45.0); HEMOGLOBIN 14.5 g/dl (12.0-16.0); LYMPHOCYTES # (AUTO) 2.3 X10'3 (1.1-4.8); LYMPHOCYTES % (AUTO) 43.1 % (21-51); MEAN CORPUSCULAR HEMOGLOBIN 37.3 PG (27.0-31.0); MEAN CORPUSCULAR HGB CONC 34.3 g/dL (33.0-36.5); MONOCYTES % (AUTO) 8.9 % (2-12); NEUTROPHILS # (AUTO) 2.4 X10'3 (1.8-7.7); NEUTROPHILS % (AUTO) 45.5 % (42-75); PLATELET COUNT 294 X10'3 (140-440); RED BLOOD COUNT 3.89 X10'6 (4.20-5.60); WHITE BLOOD COUNT 5.4 X10'3 (4.5-11.0)
[2023-08-06 12:40] LABS: ALANINE AMINOTRANSFERASE 103 U/L (12-78); ALBUMIN 3.8 G/DL (3.4-5.0); ALBUMIN/GLOBULIN RATIO 0.9 (1.1-1.5); ALKALINE PHOSPHATASE 146 IU/L (46-116); ANION GAP 21 (8-16); ASPARTATE AMINO TRANSFERASE 392 U/L (10-37); BILIRUBIN,TOTAL 0.8 MG/DL (0.1-1.0); BLOOD UREA NITROGEN 8 MG/DL (7-18); BUN/CREATININE RATIO 12.7 (10.0-20.0); CALCIUM 9.2 MG/DL (8.5-10.1); CHLORIDE 90 MMOL/L (99-107); CREATININE 0.63 MG/DL (0.40-0.90); ETHANOL 307 MG/DL (<10); GLUCOSE 52 MG/DL (70-104); SODIUM 136 MMOL/L (135-145); TOTAL CARBON DIOXIDE 24.8 MMOL/L (24-32); eCRCL 75 ML/MIN; eGFR > 90 ML/MIN
[2023-08-06 12:54] LABS: POTASSIUM 2.5 MMOL/L (3.5-5.1)
[2023-08-06] MEDS ORDERED: normal saline 1000ML IV soln IVB ONE ×2 (13:00→14:05)
[2023-08-06] MEDS ORDERED: magnesium 2GM in 50ml NS 50 ML IV ONE (13:00)
[2023-08-06] MEDS ORDERED: potassium CL 10mEq/100ml bag 100 ML IV ONE (13:00)
[2023-08-06] MEDS ORDERED: potassium Cl 20 mEq SR tablet PO ONE (13:00)
[2023-08-06] MEDS ORDERED: magnesium oxide 400mg tablet PO ONE (13:00)
[2023-08-06 13:21] LABS: MAGNESIUM 1.6 MG/DL (1.5-2.4)
[2023-08-06] MEDS ORDERED: ketorolac trometh. 30mg/ml inj. IV ONE (13:30)
[2023-08-06] MEDS ORDERED: diphenhydrAMINE 50 mg/ml inj IV ONE (13:30)
[2023-08-06] MEDS ORDERED: metoclopramide 5 mg/ml inj IV ONE (13:30)
[2023-08-06] MEDS ORDERED: ketorolac tromethamine 15mg/ml inj. IV ONE (13:30)
[2023-08-06] MEDS ORDERED: POTA-207 PO (13:39)
[2023-08-06 14:56] LABS: BILIRUBIN,URINE SMALL (Neg); CLARITY,URINE SLIGHTLY CLOUDY (Clear); COLOR,URINE YELLOW (Yellow); GLUCOSE, URINE NEGATIVE (Neg); LEUKOCYTE ESTERASE ,URINE NEGATIVE (Neg); NITRITES, URINE NEGATIVE (Neg); OCCULT BLOOD,URINE TRACE-INTACT (Neg); PROTEIN,URINE 30 mg/dl (Neg)
[2023-08-06 15:01] LABS: UA COLLECTION TYPE CLN CATCH MIDSTREAM
[2023-08-06 15:02] LABS: HYALINE CASTS >30 /LPF (NEGATIVE); SQUAMOUS EPITHELIAL CELL,UR MANY /LPF (FEW)
[2023-08-06 15:03] LABS: BACTERIA,URINE 1+ /HPF (Neg); TRANSITIONAL EPI CELLS,URINE FEW /HPF
[2023-08-06 15:04] LABS: RBC,URINE 0-2 /HPF (0-2); RENAL CELLS, URINE FEW /HPF; WBC,URINE 0-4 /HPF (0-4)
[2023-08-06 15:10] LABS: URINE AMPHETAMINE SCREEN NEGATIVE (Neg); URINE BARBITUATE SCREEN NEGATIVE (Neg); URINE BENZODIAZEPINES SCREEN POSITIVE (Neg); URINE CANNABINOID SCREEN POSITIVE (Neg); URINE COCAINE SCREEN NEGATIVE (Neg); URINE METHADONE SCREEN NEGATIVE (Neg); URINE OPIATE SCREEN NEGATIVE (Neg); URINE PHENCYCLIDINE SCREEN NEGATIVE (Neg)
[2023-08-06 15:40] LABS: KETONES,URINE >80 mg/dl (Neg)
[2023-08-06 19:24] LABS: ALANINE AMINOTRANSFERASE 103 U/L (12-78); ALBUMIN 3.2 G/DL (3.4-5.0); ALBUMIN/GLOBULIN RATIO 0.9 (1.1-1.5); ALKALINE PHOSPHATASE 131 IU/L (46-116); ANION GAP 15 (8-16); BILIRUBIN,TOTAL 0.6 MG/DL (0.1-1.0); BLOOD UREA NITROGEN 7 MG/DL (7-18); BUN/CREATININE RATIO 15.6 (10.0-20.0); CALCIUM 7.5 MG/DL (8.5-10.1); CHLORIDE 95 MMOL/L (99-107); CREATININE 0.45 MG/DL (0.40-0.90); GLUCOSE 62 MG/DL (70-104); SODIUM 134 MMOL/L (135-145); TOTAL PROTEIN 6.8 G/DL (6.4-8.2); eCRCL 105 ML/MIN; eGFR > 90 ML/MIN
[2023-08-06 19:25] LABS: ASPARTATE AMINO TRANSFERASE 361 U/L (10-37); POTASSIUM 3.9 MMOL/L (3.5-5.1)
[2023-08-06 19:30] VITALS: RESP 15
[2023-08-06 20:36] VITALS: BP 113/73; PULSE 70; O2SAT 94
== END 2023-08-06 20:37 | disposition home or self-care (01) ==
LOC: ER 11:45
DX: E87.6 Hypokalemia (principal); F10.129 Alcohol abuse with intoxication, unspecified; R51.9 Headache, unspecified; J44.9 Chronic obstructive pulmonary disease, unspecified; G89.29 Other chronic pain; F41.9 Anxiety disorder, unspecified; F32.9 Major depressive disorder, single episode, unspecified; F12.90 Cannabis use, unspecified, uncomplicated; F15.90 Other stimulant use, unspecified, uncomplicated; Z56.0 Unemployment, unspecified; Z59.00 Homelessness unspecified; Z88.0 Allergy status to penicillin; Z79.899 Other long term (current) drug therapy; Y90.0 Blood alcohol level of less than 20 mg/100 ml
CPT/HCPCS: 36415; 80053; 80305; 80320; 81001; 82140; 82948; 83735; 85025; 93005; 96365; 96368; 96375; 99285; J1200; J1885; J2765; J3475; J3480; J7030